=== PATIENT | male | born 1960 | race Caucasian/White ===

== ENCOUNTER 2018-08-30 16:42 | Inpatient (IN) ==
[2018-08-30] MEDS ORDERED: Sod Chloride 0.9% Inj 1,000 ML IV.SIG SCH (17:15)
--- NOTE | 2018-08-30 17:17 | ED ---
HPI General Chief complaint: Psychiatric Symptoms Stated complaint: psych eval/flagler Time Seen by Provider: 08/30/18 16:58 Source: patient Mode of arrival: ambulatory Limitations: no limitations History of Present Illness HPI narrative: 58yo M was brought in as Ex Parte because pt has been refusing to eat, drink, move or go to doctor's appointment for 2 months. Pt is cachetic and seemed hopeless. Said when he eats, "his body gets all messed up" so he does not want to eat. Said his abdomen hurts after eating and it has been like that since his gallbladder was removed 1.5 months ago. Denies any fever, chest pain, sob, n/v, focal weakness or numbness. Related Data Home Medications Medication Instructions Recorded Confirmed No Known Home Medications 08/30/18 08/30/18 Allergies Allergy/AdvReac Type Severity Reaction Status Date / Time No Known Allergies Allergy Uncoded 12/06/14 12:02 Review of Systems ROS: all other systems reviewed are negative [facility] Surgical History Surgical History History of cholecystectomy (Acute) Social History Social History Substance History: No History of Abuse Smoking Status: Never smoker How Often Do You Have a Drink Containing Alcohol: Monthly or less Recent Travel in [facility] within the Last 8 Weeks: No Recent Out of Country Travel within the Last 8 Weeks: No Immunization History Tetanus Immunization: Unsure Exam Narrative Exam Narrative: GENERAL: 58yo M in mild distress. SKIN: Focused skin assessment warm/dry. HEAD: Atraumatic. Normocephalic. EYES: Pupils equal and round. No scleral icterus. No injection or drainage. ENT: No nasal bleeding or discharge. Mucous membranes pink and moist. NECK: Trachea midline. No JVD. CARDIOVASCULAR: Mild tachycardia at 100bpm. No murmur appreciated. RESPIRATORY: No accessory muscle use. Clear to auscultation. Breath sounds equal bilaterally. GASTROINTESTINAL: Abdomen soft, nondistended. TTP with slight palpation diffusely. MUSCULOSKELETAL: No obvious deformities. No clubbing. No cyanosis. No edema. NEUROLOGICAL: Awake and alert. No obvious cranial nerve deficits. Motor grossly within normal limits. Normal speech. PSYCHIATRIC: Appropriate mood and affect; insight and judgment normal. Course Initial Documented Vital Signs Temperature 98.6 F 08/30/18 16:58 Pulse Rate 100 H 08/30/18 16:58 Respiratory Rate 20 11/29/18 16:58 Blood Pressure 132/96 H 08/30/18 16:58 Pulse Oximetry 100 08/30/18 16:58 Last Documented Vital Signs Temperature 98.2 F 08/30/18 22:00 Pulse Rate 88 08/31/18 05:46 Respiratory Rate 16 08/31/18 05:46 Blood Pressure 142/98 H 08/31/18 05:46 Pulse Oximetry 100 08/31/18 05:46 Medical Decision Making MDM Narrative Medical decision making narrative: 58yo M who is cachetic appearing here under Ex Parte because family said he has refused to eat or take medication for months. Pt does appear hopeless. No focal neurologic deficits. Will obtain labs to check electrolytes. Pt is very tender in the abdomen although it sounds chronic, will do CT a/p since he has not been here for this. Need to rule out malignancy. Labs reviewed, no leukocytosis. H/H low at 12.4/36.5, improved from last month. Mild hypokalemia at 3.1, ordered KCl PO. TSH normal. Alcohol negative. CT a/p showed prominent prostate with high density material in expected region of prostatic urethra raising possibility of blood clot. Clinically, pt said he had urination this morning and there is no blood in his urine. He has not urinated for us yet, waiting for UA and urine drug screen. Mild diffuse urinary bladder wall thickening. 6mm low density lesion within right lobe of liver which is too small for accurate density measurement. MRI of abdomen with liver protocol would be helpful. Informed pt and he can follow up as outpatient for this. Mild degenerative changes and scoliosis of the thoracolumbar spine. Pt is pending urine but otherwise medically clear for psych evaluation. Medical Screen Exam Complete: Yes Emergency Medical Condition: Yes Differential Diagnosis Differential Diagnosis: Depression vs. electrolyte abnormality vs. dehydration vs. chronic abdominal pain vs. malignancy Lab Data Result diagrams: 08/30/18 17:08 08/30/18 17:08 Lab Results 08/30/18 08/30/18 08/30/18 Range/Units 17:08 17:08 21:40 WBC 4.7 (4.0-11.0) th/mm3 RBC 4.33 L (4.50-5.90) mil/mm3 Hgb 12.4 L (13.0-17.0) gm/dL Hct 36.5 L (39.0-51.0) % MCV 84.5 (80.0-100.0) fL MCH 28.7 (27.0-34.0) pg MCHC 33.9 (32.0-36.0) % RDW 14.8 (11.6-17.2) % Plt Count 295 (150-450) th/mm3 MPV 9.4 (7.0-11.0) fL Neut % (Auto) 70.6 H (16.0-70.0) % Lymph % (Auto) 20.8 (9.0-44.0) % [place] % (Auto) 7.1 (0.0-8.0) % Eos % (Auto) 0.2 (0.0-4.0) % Baso % (Auto) 1.3 (0.0-2.0) % Neut # (Auto) 3.3 (1.8-7.7) th/mm3 Lymph # (Auto) 1.0 (1.0-4.8) th/mm3 [place] # (Auto) 0.3 (0.0-0.9) th/mm3 Eos # (Auto) 0.0 (0.0-0.4) th/mm3 Baso # (Auto) 0.1 (0.0-0.2) th/mm3 WBC Differential . Differential Comment Auto diff final Sodium 138 (136-145) meq/L Potassium 3.1 L (3.5-5.1) meq/L Chloride 98 (98-107) meq/L Carbon Dioxide 28.5 (21.0-32.0) meq/L Anion Gap 12 (5-15) meq/L BUN 17 (7-18) mg/dL Creatinine 0.91 (0.60-1.30) mg/dL Estimated GFR 86 L (>89) mL/min Random Glucose 99 (74-106) mg/dL Calcium 8.8 (8.5-10.1) mg/dL Magnesium 1.9 (1.5-2.5) mg/dL Total Bilirubin 0.9 (0.2-1.0) mg/dL AST 15 (15-37) U/L ALT 11 L (12-78) U/L Alkaline Phosphatase 50 (45-117) U/L Total Protein 6.7 (6.4-8.2) g/dL Albumin 3.4 (3.4-5.0) g/dL TSH 2.960 (0.358-3.740) uIU/mL Urine Color (Yellw/Straw) Urine Clarity (Clear) Urine pH (5.0-8.5) Ur Specific [place] (1.002-1.035) Urine Protein (Neg-Trace) mg/dL Urine Glucose (UA) (Negative) mg/dL Urine Ketones (Negative) mg/dL Urine Occult Blood (Negative) Urine Nitrate (Negative) Urine Bilirubin (Negative) Urine Urobilinogen (Less than 2) mg/dL Ur Leukocyte Esterase (Negative) Urine RBC (0-3) /hpf Urine WBC (0-5) /hpf Ur Squamous Epith Cells (0-5) /hpf Urine Mucus (Occasional) /lpf Micro UA Comment Ur Microscopic Review Urine Culture Comments Urine Opiates Screen Neg (Neg) Ur Barbiturates Screen Neg (Neg) Ur Amphetamines Screen Neg (Neg) U Benzodiazepines Scrn Neg (Neg) Urine Cocaine Screen Neg (Neg) U Cannabinoids Screen Neg (Neg) Serum Alcohol Less than 3 (0-5) mg/dL 08/30/18 Range/Units 21:40 WBC (4.0-11.0) th/mm3 RBC (4.50-5.90) mil/mm3 Hgb (13.0-17.0) gm/dL Hct (39.0-51.0) % MCV (80.0-100.0) fL MCH (27.0-34.0) pg MCHC (32.0-36.0) % RDW (11.6-17.2) % Plt Count (150-450) th/mm3 MPV (7.0-11.0) fL Neut % (Auto) (16.0-70.0) % Lymph % (Auto) (9.0-44.0) % [place] % (Auto) (0.0-8.0) % Eos % (Auto) (0.0-4.0) % Baso % (Auto) (0.0-2.0) % Neut # (Auto) (1.8-7.7) th/mm3 Lymph # (Auto) (1.0-4.8) th/mm3 [place] # (Auto) (0.0-0.9) th/mm3 Eos # (Auto) (0.0-0.4) th/mm3 Baso # (Auto) (0.0-0.2) th/mm3 WBC Differential Differential Comment Sodium (136-145) meq/L Potassium (3.5-5.1) meq/L Chloride (98-107) meq/L Carbon Dioxide (21.0-32.0) meq/L Anion Gap (5-15) meq/L BUN (7-18) mg/dL Creatinine (0.60-1.30) mg/dL Estimated GFR (>89) mL/min Random Glucose (74-106) mg/dL Calcium (8.5-10.1) mg/dL Magnesium (1.5-2.5) mg/dL Total Bilirubin (0.2-1.0) mg/dL AST (15-37) U/L ALT (12-78) U/L Alkaline Phosphatase (45-117) U/L Total Protein (6.4-8.2) g/dL Albumin (3.4-5.0) g/dL TSH (0.358-3.740) uIU/mL Urine Color Yellow (Yellw/Straw) Urine Clarity Clear (Clear) Urine pH 7.0 (5.0-8.5) Ur Specific [place] 1.042 H (1.002-1.035) Urine Protein 30 H (Neg-Trace) mg/dL Urine Glucose (UA) Negative (Negative) mg/dL Urine Ketones 20 (Negative) mg/dL Urine Occult Blood Negative (Negative) Urine Nitrate Negative (Negative) Urine Bilirubin Negative (Negative) Urine Urobilinogen 4 or greater (Less than 2) mg/dL Ur Leukocyte Esterase Negative (Negative) Urine RBC 1 (0-3) /hpf Urine WBC 2 (0-5) /hpf Ur Squamous Epith Cells <1 (0-5) /hpf Urine Mucus Few H (Occasional) /lpf Micro UA Comment Culture not ind Ur Microscopic Review Not Reportable Urine Culture Comments Culture not ind Urine Opiates Screen (Neg) Ur Barbiturates Screen (Neg) Ur Amphetamines Screen (Neg) U Benzodiazepines Scrn (Neg) Urine Cocaine Screen (Neg) U Cannabinoids Screen (Neg) Serum Alcohol (0-5) mg/dL Imaging Data Radiologist's impression: Abdomen/Pelvis CT 08/30/18 17:05 CONCLUSION: 1. Small pericardial effusion. 2. Prominent prostate with high density material in the expected region of the prostatic urethra raising the possibility of blood clot. Clinical correlation is recommended. 3. Mild diffuse urinary bladder wall thickening. 4. 3.7 cm right lower pole renal cyst. 5. 6 mm low-density lesion within the right lobe of the liver which is too small for accurate density measurement. MRI of the abdomen with contrast using liver protocol would be helpful for further characterization of this finding if clinically indicated. 6. Mild degenerative changes and scoliosis of the thoracolumbar spine. Discharge Plan Discharge Disposition Patient Disposition: 30 Still Patient Discharge Details Diagnosis: Depression Physicians Team ED Provider: Genesis Burks Primary Care Provider: Primary Care Physici,Damaris Rxs /Orders / Referrals /Forms Prescriptions: No Action No Known Home Medications RF: 0 Status ED Status: Medically Cleared
[2018-08-30 17:23] LABS: Baso # (Auto) 0.1 th/mm3 (0.0-0.2); Baso % (Auto) 1.3 % (0.0-2.0); Eos % (Auto) 0.2 % (0.0-4.0); Hematocrit 36.5 % (39.0-51.0); Hemoglobin 12.4 gm/dL (13.0-17.0); Lymph % (Auto) 20.8 % (9.0-44.0); Mean Corpuscular HGB Conc 33.9 % (32.0-36.0); Mean Corpuscular Hemoglobin 28.7 pg (27.0-34.0); Mean Corpuscular Volume 84.5 fL (80.0-100.0); Mean Platelet Volume 9.4 fL (7.0-11.0); Mono # (Auto) 0.3 th/mm3 (0.0-0.9); Mono % (Auto) 7.1 % (0.0-8.0); Neut # (Auto) 3.3 th/mm3 (1.8-7.7); Neut % (Auto) 70.6 % (16.0-70.0); Platelet Count 295 th/mm3 (150-450); Red Blood Count 4.33 mil/mm3 (4.50-5.90); Red Cell Distribution Width 14.8 % (11.6-17.2); White Blood Count 4.7 th/mm3 (4.0-11.0)
--- NOTE | 2018-08-30 17:43 | CT ---
EXAM DATE: 08/30/2018 5:33 PM EST AGE/SEX: 58 years / Male INDICATIONS: Abdominal pain. CLINICAL DATA: This is the patient's initial encounter. Patient reports that signs and symptoms have been present for 1 day and indicates a pain score of 6/10. MEDICAL/SURGICAL HISTORY: None. Cholecystectomy. ORAL CONTRAST: No oral contrast ingested. RADIATION DOSE: 6.64 CTDI (mGy) COMPARISON: No prior exams available for comparison. TECHNIQUE: Multiple contiguous axial images were obtained through the abdomen and pelvis following b olus infusion of 90 ml Omnipaque 350 (iohexol) nonionic water-soluble contrast as a single exam dos e. No oral contrast ingested. Using automated exposure control and adjustment of the mA and/or kV ac cording to patient size, radiation dose was kept as low as reasonably achievable to obtain optimal di agnostic quality images. DICOM format image data is available electronically for review and comparis on. FINDINGS: Lower Lungs: Small pericardial effusion is noted. Liver: There is a 6 mm low-density lesion within the right lobe of the liver which is too small for a ccurate density measurement. MRI of the abdomen with contrast using liver protocol would be helpful f or further characterization of this finding if clinically indicated. There is no dilation of the bili dipti tree. The gallbladder has been resected. Spleen: Homogeneous density without enlargement. Pancreas: Unremarkable without mass or calcification. Kidneys: Normal in size and shape. No evidence of solid mass or hydronephrosis. There is a 3.7 cm ri ght lower pole renal cyst. Adrenal Glands: Unremarkable. Aorta: The aorta and proximal iliac vessels are grossly unremarkable without aneurysmal dilation. Bowel/Mesentery: The bowel loops are grossly unremarkable. The cecum and sigmoid colon have a normal configuration. Abdominal Wall: Intact. Retroperitoneum: No evidence of adenopathy in the retrocrural, para-aortic, or deep pelvic regions. Bladder: The urinary bladder wall is diffusely thickened. There is high density material in the expe cted region of the prostatic urethra raising the possibility of blood clot. Clinical correlation is r ecommended. Reproductive Organs: The prostate gland is mildly prominent. Inguinal: The inguinal region is unremarkable without evidence of adenopathy. Bony Structures: Mild degenerative changes and scoliosis of the thoracolumbar spine are noted. CONCLUSION: 1. Small pericardial effusion. 2. Prominent prostate with high density material in the expected region of the prostatic urethra butcher sing the possibility of blood clot. Clinical correlation is recommended. 3. Mild diffuse urinary bladder wall thickening. 4. 3.7 cm right lower pole renal cyst. 5. 6 mm low-density lesion within the right lobe of the liver which is too small for accurate densit y measurement. MRI of the abdomen with contrast using liver protocol would be helpful for further linda racterization of this finding if clinically indicated. 6. Mild degenerative changes and scoliosis of the thoracolumbar spine. Electronically signed by: Cuauhtemoc Healy MD 08/30/2018 5:41 PM EST
[2018-08-30 17:47] LABS: Alanine Aminotransferase 11 U/L (12-78); Albumin 3.4 g/dL (3.4-5.0); Anion Gap 12 meq/L (5-15); Aspartate Aminotransferase 15 U/L (15-37); Blood Urea Nitrogen 17 mg/dL (7-18); Calcium 8.8 mg/dL (8.5-10.1); Carbon Dioxide 28.5 meq/L (21.0-32.0); Chloride 98 meq/L (98-107); Glomerular Filtration Rate 86 mL/min (>89); Glucose,Random 99 mg/dL (74-106); Magnesium 1.9 mg/dL (1.5-2.5); Potassium 3.1 meq/L (3.5-5.1); Sodium 138 meq/L (136-145)
[2018-08-30 17:57] LABS: Alkaline Phosphatase 50 U/L (45-117); Total Protein 6.7 g/dL (6.4-8.2)
[2018-08-30 22:14] LABS: Amphetamine Screen,Urine Neg (Neg); Barbiturate Screen,Urine Neg (Neg); Cannabinoid Screen,Urine Neg (Neg); Cocaine Screen,Urine Neg (Neg)
[2018-08-30 22:20] LABS: Opiate Screen,Urine Neg (Neg)
[2018-08-30 22:26] LABS: Bilirubin,Urine Negative (Negative); Clarity,Urine Clear (Clear); Color,Urine Yellow (Yellw/Straw); Glucose,Urine (UA) Negative (Negative); Leukocyte Esterase,Urine Negative (Negative); Mucus,Urine Few /lpf (Occasional); Nitrite,Urine Negative (Negative); Specific Gravity,Urine 1.042 (1.002-1.035); Squamous Epithelial Cell,Urine <1 /hpf (0-5); Urobilinogen,Urine 4 or Greater mg/dL (Less than 2)
--- NOTE | 2018-08-31 10:28 | ED ---
HPI - Psych - General Source: patient, RN notes reviewed, old records reviewed Mode of arrival: ambulatory Limitations: physical limitation - History of Present Illness MD complaint: other Onset (ago): week(s) Duration: constant History of same: No Relieving factors: none Exacerbating factors: other (Recent surgery) Context: significant life stressor Associated psychiatric symptoms: depression Associated symptoms: nausea, other (Dizziness) Treatments prior to arrival: other (under Ex Parte) - General Chief Complaint: Psychiatric Symptoms Stated Complaint: psych eval/flagler Time Seen by Provider: 08/30/18 16:58 - History of Present Illness HPI Narrative: History of Present Illness HPI narrative: The patient is 58 year old, male, living with his parents, 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 The process was started by his daughter who allege that over the past 6 to 8 weeks the patient has been refusing to eat, drink anything but water, get out of bed, or follow-up with scheduled doctor's appointments. It is reported that the patient has lost approximately 100 pounds. The patient states that he is unable to eat because when he does eat my body gets all messed up so I do not want to eat. He attributes this began after he had his gallbladder bladder removed a month and a half ago. The patient is seen. Electronic medical record is reviewed. No previous contact with [facility] psychiatry. Labs reviewed, no leukocytosis. H/H low at 12.4/36.5. Mild hypokalemia at 3.1. TSH normal. Alcohol negative. CT a/p showed prominent prostate with high density material in expected region of prostatic urethra raising possibility of blood clot. Clinically, pt said he had urination this morning and there is no blood in his urine. Mild diffuse urinary bladder wall thickening. 6mm low density lesion within right lobe of liver which is too small for accurate density measurement. MRI of abdomen with liver protocol is recommended as an outpatients. Mild degenerative changes and scoliosis of the thoracolumbar spine. Patient is seen. He is alert, oriented, cachectic. Speech is clear and logical. Affect is blunted. Mood is depressed, hopeless regarding his physical condition. Patient states "I have given up on my body but I do not want to ."Denies suicidal ideation. Denies any hallucinations, delusions or paranoia. He states that he has been having increased difficulty eating and since his gallbladder surgery so he basically stopped eating. He is mostly drinking sips of water as per his reports. He states that he has been in bed and now is unable to walk on his own. (An Michaels) - Related Data Home Medications Medication Instructions Recorded Confirmed No Known Home Medications 08/30/18 08/30/18 Allergies Allergy/AdvReac Type Severity Reaction Status Date / Time No Known Allergies Allergy Uncoded 12/06/14 12:02 [facility] - History History Provided By: Patient - Surgical History Surgical History: Surgical History (Last Updated 08/30/18 @ 16:58 by Jerica Hernández) History of cholecystectomy - Social History I have reviewed the patient's Social History: Yes - Tobacco History Smoking Status: Never smoker - Alcohol History How Often Do You Have a Drink Containing Alcohol: Monthly or less - Substance Use History Substance History: No History of Abuse - Travel History Recent Travel in the [facility] Within the Last 8 Weeks: No Recent Travel Out of the Country Within the Last 8 Weeks: No - Immunization History Tetanus Immunization: Unsure Psychiatric History - Psychiatric History Psychiatric Treatment History: History of Psychiatric Treatment History of Inpatient Treatment: Yes Firearms in Home: Yes - Psychiatric History Reports 1 previous psychiatric admission at [facility] in 2017 after he was placed under a Kirk act for allegedly not sleeping as well as working excessively. He was prescribed Seroquel 300 mg p.o. daily which he states he took until approximately the beginning of this year. He is currently not taking any psychiatric medication and not under the care of any psychiatric provider. Denies any previous suicide attempt (An Michaels) - Legal History Patient is under probation after he was found carrying a weapon. History of DUI in 2008 (An Michaels) - Family Psychiatric History Father has received treatment for depression. His brother also receives treatment for depression (An Michaels) Physical Exam - General Limitations: no limitations Mental Status Examination Appearance: Other (Very thin male) Consciousness: Alert (.) Orientation: x4 Motor Activity: Other Speech: Unremarkable Language: Adequate (Remained in bed) Fund of Knowledge: Adequate Attention and Concentration: Adequate Memory: Unremarkable Mood: Sad, Other (Hopeless) Affect: Blunt Thought Process & Associations: Intact, Logical, Goal directed Initial Documented Vital Signs Temperature 98.6 F 08/30/18 16:58 Pulse Rate 100 H 08/30/18 16:58 Respiratory Rate 20 08/30/18 16:58 Blood Pressure 132/96 H 08/30/18 16:58 Pulse Oximetry 100 08/30/18 16:58 Last Documented Vital Signs Temperature 98.2 F 08/30/18 22:00 Pulse Rate 78 08/31/18 10:51 Respiratory Rate 20 08/31/18 10:51 Blood Pressure 163/90 H 08/31/18 10:51 Pulse Oximetry 100 08/31/18 08:45 MDM - Psych - Diagnosis (1) Bipolar disorder with depression Status: Acute - Lab Data Result diagrams: 08/30/18 17:08 08/30/18 17:08 - [facility] Narrative Medical decision making narrative: Case discussed with Dr. Delarosa for admission to [facility]. I will order a medical consult as well as OT and PT. Patient will be admitted for further observation, stabilization and medication management. (An Michaels) - Lab Data Lab Results 08/30/18 08/30/18 08/30/18 Range/Units 17:08 17:08 21:40 WBC 4.7 (4.0-11.0) th/mm3 RBC 4.33 L (4.50-5.90) mil/mm3 Hgb 12.4 L (13.0-17.0) gm/dL Hct 36.5 L (39.0-51.0) % MCV 84.5 (80.0-100.0) fL MCH 28.7 (27.0-34.0) pg MCHC 33.9 (32.0-36.0) % RDW 14.8 (11.6-17.2) % Plt Count 295 (150-450) th/mm3 MPV 9.4 (7.0-11.0) fL Neut % (Auto) 70.6 H (16.0-70.0) % Lymph % (Auto) 20.8 (9.0-44.0) % [place] % (Auto) 7.1 (0.0-8.0) % Eos % (Auto) 0.2 (0.0-4.0) % Baso % (Auto) 1.3 (0.0-2.0) % Neut # (Auto) 3.3 (1.8-7.7) th/mm3 Lymph # (Auto) 1.0 (1.0-4.8) th/mm3 [place] # (Auto) 0.3 (0.0-0.9) th/mm3 Eos # (Auto) 0.0 (0.0-0.4) th/mm3 Baso # (Auto) 0.1 (0.0-0.2) th/mm3 WBC Differential . Differential Comment Auto diff final Sodium 138 (136-145) meq/L Potassium 3.1 L (3.5-5.1) meq/L Chloride 98 (98-107) meq/L Carbon Dioxide 28.5 (21.0-32.0) meq/L Anion Gap 12 (5-15) meq/L BUN 17 (7-18) mg/dL Creatinine 0.91 (0.60-1.30) mg/dL Estimated GFR 86 L (>89) mL/min Random Glucose 99 (74-106) mg/dL Calcium 8.8 (8.5-10.1) mg/dL Magnesium 1.9 (1.5-2.5) mg/dL Total Bilirubin 0.9 (0.2-1.0) mg/dL AST 15 (15-37) U/L ALT 11 L (12-78) U/L Alkaline Phosphatase 50 (45-117) U/L Total Protein 6.7 (6.4-8.2) g/dL Albumin 3.4 (3.4-5.0) g/dL TSH 2.960 (0.358-3.740) uIU/mL Urine Color (Yellw/Straw) Urine Clarity (Clear) Urine pH (5.0-8.5) Ur Specific [place] (1.002-1.035) Urine Protein (Neg-Trace) mg/dL Urine Glucose (UA) (Negative) mg/dL Urine Ketones (Negative) mg/dL Urine Occult Blood (Negative) Urine Nitrate (Negative) Urine Bilirubin (Negative) Urine Urobilinogen (Less than 2) mg/dL Ur Leukocyte Esterase (Negative) Urine RBC (0-3) /hpf Urine WBC (0-5) /hpf Ur Squamous Epith Cells (0-5) /hpf Urine Mucus (Occasional) /lpf Micro UA Comment Ur Microscopic Review Urine Culture Comments Urine Opiates Screen Neg (Neg) Ur Barbiturates Screen Neg (Neg) Ur Amphetamines Screen Neg (Neg) U Benzodiazepines Scrn Neg (Neg) Urine Cocaine Screen Neg (Neg) U Cannabinoids Screen Neg (Neg) Serum Alcohol Less than 3 (0-5) mg/dL 08/30/18 Range/Units 21:40 WBC (4.0-11.0) th/mm3 RBC (4.50-5.90) mil/mm3 Hgb (13.0-17.0) gm/dL Hct (39.0-51.0) % MCV (80.0-100.0) fL MCH (27.0-34.0) pg MCHC (32.0-36.0) % RDW (11.6-17.2) % Plt Count (150-450) th/mm3 MPV (7.0-11.0) fL Neut % (Auto) (16.0-70.0) % Lymph % (Auto) (9.0-44.0) % [place] % (Auto) (0.0-8.0) % Eos % (Auto) (0.0-4.0) % Baso % (Auto) (0.0-2.0) % Neut # (Auto) (1.8-7.7) th/mm3 Lymph # (Auto) (1.0-4.8) th/mm3 [place] # (Auto) (0.0-0.9) th/mm3 Eos # (Auto) (0.0-0.4) th/mm3 Baso # (Auto) (0.0-0.2) th/mm3 WBC Differential Differential Comment Sodium (136-145) meq/L Potassium (3.5-5.1) meq/L Chloride (98-107) meq/L Carbon Dioxide (21.0-32.0) meq/L Anion Gap (5-15) meq/L BUN (7-18) mg/dL Creatinine (0.60-1.30) mg/dL Estimated GFR (>89) mL/min Random Glucose (74-106) mg/dL Calcium (8.5-10.1) mg/dL Magnesium (1.5-2.5) mg/dL Total Bilirubin (0.2-1.0) mg/dL AST (15-37) U/L ALT (12-78) U/L Alkaline Phosphatase (45-117) U/L Total Protein (6.4-8.2) g/dL Albumin (3.4-5.0) g/dL TSH (0.358-3.740) uIU/mL Urine Color Yellow (Yellw/Straw) Urine Clarity Clear (Clear) Urine pH 7.0 (5.0-8.5) Ur Specific [place] 1.042 H (1.002-1.035) Urine Protein 30 H (Neg-Trace) mg/dL Urine Glucose (UA) Negative (Negative) mg/dL Urine Ketones 20 (Negative) mg/dL Urine Occult Blood Negative (Negative) Urine Nitrate Negative (Negative) Urine Bilirubin Negative (Negative) Urine Urobilinogen 4 or greater (Less than 2) mg/dL Ur Leukocyte Esterase Negative (Negative) Urine RBC 1 (0-3) /hpf Urine WBC 2 (0-5) /hpf Ur Squamous Epith Cells <1 (0-5) /hpf Urine Mucus Few H (Occasional) /lpf Micro UA Comment Culture not ind Ur Microscopic Review Not Reportable Urine Culture Comments Culture not ind Urine Opiates Screen (Neg) Ur Barbiturates Screen (Neg) Ur Amphetamines Screen (Neg) U Benzodiazepines Scrn (Neg) Urine Cocaine Screen (Neg) U Cannabinoids Screen (Neg) Serum Alcohol (0-5) mg/dL
[2018-08-31] MEDS ORDERED: Aluminum/Magnesium/Simethacone Susp 30 ML UDC PO PRN (10:51)
[2018-08-31 17:19] LABS: Anion Gap 7 meq/L (5-15); Blood Urea Nitrogen 15 mg/dL (7-18); Calcium 8.4 mg/dL (8.5-10.1); Carbon Dioxide 31.4 meq/L (21.0-32.0); Chloride 102 meq/L (98-107); Glomerular Filtration Rate Greater Than 89 mL/min (>89); Glucose,Random 94 mg/dL (74-106); Potassium 3.3 meq/L (3.5-5.1); Sodium 140 meq/L (136-145)
[2018-08-31] MEDS ORDERED: Lisinopril 5 MG Tablet PO ONE (17:37)
--- NOTE | 2018-08-31 17:40 | P.CON ---
History of Present Illness Service: [facility] Consult date: 08/31/18 Requesting Physician: An Michaels Reason for Consult: Medical management Primary Care Provider: No Primary Care Physician Chief Complaint: "Nothing is going through" History of Present Illness: 58-year-old male with past medical history significant for hypertension who presents to the emergency under ex-parte due to severe depression. Review of records, daughter was severely concerned with patient as he had become severely depressed not eating or drinking. Patient had also secluded to his room for the past 2 months with failure to thrive. Patient reports that he had a cholecystectomy about 7 weeks ago and since then has not been able to eat a regular diet. He has been eating cereal as well as drinking fluids. He states that his bowels have not been normal. He states that "things are not going through" . He complains of diffuse abdominal pain which has been ongoing since his cholecystectomy. He denies any nausea, vomiting. One episode of diarrhea and occasional constipation. He denies any fevers, chills, cough, shortness of breath, chest pain, palpitations, headache or dizziness. He reportedly has lost a total of 100lb in the past 2 months per exparte documents. Patient also reports a history of HTN for which he was on lisinopril for, he has not been compliant with this. He denies any dysuria, hematuria hesitancy. Review of Systems All other systems reviewed negative except as stated in HPI PMFSH - History History Provided By: Patient - Medical History Medical History: Medical History (Last Updated 08/31/18 @ 18:12 by Robson Saravia) Hypertension - Surgical History Surgical History: Surgical History (Last Reviewed 08/31/18 @ 18:12 by Robson Saravia) History of cholecystectomy - Social History I have reviewed the patient's Social History: Yes - Tobacco History Second Hand Smoke Exposure: No Tobacco Use In Past 30 Days: No Smoking Status: Never smoker - Alcohol History How Often Do You Have a Drink Containing Alcohol: Monthly or less - Substance Use History Substance History: No History of Abuse - Travel History Recent Travel in the [place] Within the Last 8 Weeks: No Recent Travel Out of the Country Within the Last 8 Weeks: No - Immunization History Tetanus Immunization: <5 Years Hx Influenza Vaccine This Season: No Medications and Allergies Active Medications: Active Medications Al Hydrox/Mg Hydrox/Simethicone (Mag-Al Plus Susp Liq) 30 ml PO Q6H PRN PRN Reason: DYSPEPSIA Sodium Chloride (Ns Inj) 1,000 mls @ 100 mls/hr IV.CONT .Q10H RICKY Lactulose (Lactulose Liq) 30 ml PO DAILY PRN PRN Reason: SEVERE CONSITIPATION Lisinopril (Prinivil) 5 mg PO DAILY RICKY Lisinopril (Prinivil) 2.5 mg PO ONCE ONE Stop: 08/31/18 17:38 Potassium Chloride (Klor-Con 10) 30 meq PO ONCE ONE Stop: 08/31/18 17:37 Allergies Allergy/AdvReac Type Severity Reaction Status Date / Time No Known Allergies Allergy Uncoded 12/06/14 12:02 Home Medications Medication Instructions Recorded Confirmed Type No Known Home Medications 08/30/18 08/30/18 History Physical Exam Vital signs: Vital Signs 08/30/18 18:00 08/30/18 22:00 08/31/18 02:00 Temperature 98.2 F Pulse Rate 83 88 82 Respiratory Rate 16 20 20 Blood Pressure 154/101 H 136/86 128/72 Pulse Oximetry 99 98 98 08/31/18 05:46 08/31/18 08:45 08/31/18 10:51 Temperature Pulse Rate 88 104 H 78 Respiratory Rate 16 18 20 Blood Pressure 142/98 H 158/95 H 163/90 H Pulse Oximetry 100 100 Intake & Output 08/30/18 08/31/18 08/31/18 18:59 06:59 18:59 Intake Total 1000 / 1000 Balance 1000 / 1000 Weight 52.617 kg Intake: IV 1000 / 1000 NS Inj 1,000 ML @ 1000 mls/hr 1000 / 1000 IV.SIG BOLUS RICKY Rx#:[id number] Narrative: GENERAL: Thin emaciated male resign in bed in no acute distress. SKIN: Warm and dry. HEAD: Atraumatic. Normocephalic. EYES: Pupils equal and round. No scleral icterus. No injection or drainage. ENT: No nasal bleeding or discharge. Mucous membranes pink and moist. NECK: Trachea midline. No JVD. CARDIOVASCULAR: Regular rate and rhythm with no rubs. RESPIRATORY: No accessory muscle use. Clear to auscultation. Breath sounds equal bilaterally. GASTROINTESTINAL: Abdomen soft, nontender, nondistended. Hypoactive bowel sounds. MUSCULOSKELETAL: Extremities without clubbing, cyanosis, or edema. No obvious deformities. NEUROLOGICAL: Awake, alert, oriented x3. No obvious cranial nerve deficits. Motor grossly within normal limits. 4/5 muscle strength in the arms and legs. Normal speech. PSYCHIATRIC: Flat affect. Results - Labs CBC & Chem 7: 08/30/18 17:08 08/31/18 16:30 Labs: Laboratory Results - last 24 hr 08/30/18 08/30/18 08/30/18 17:08 21:40 21:40 Sodium 138 Potassium 3.1 L Chloride 98 Carbon Dioxide 28.5 Anion Gap 12 BUN 17 Creatinine 0.91 Estimated GFR 86 L Random Glucose 99 Calcium 8.8 Magnesium 1.9 Total Bilirubin 0.9 AST 15 ALT 11 L Alkaline Phosphatase 50 Total Protein 6.7 Albumin 3.4 TSH 2.960 Urine Color Yellow Urine Clarity Clear Urine pH 7.0 Ur Specific [place] 1.042 H Urine Protein 30 H Urine Glucose (UA) Negative Urine Ketones 20 Urine Occult Blood Negative Urine Nitrate Negative Urine Bilirubin Negative Urine Urobilinogen 4 or greater Ur Leukocyte Esterase Negative Urine RBC 1 Urine WBC 2 Ur Squamous Epith Cells <1 Urine Mucus Few H Micro UA Comment Culture not ind Ur Microscopic Review Not Reportable Urine Culture Comments Culture not ind Urine Opiates Screen Neg Ur Barbiturates Screen Neg Ur Amphetamines Screen Neg U Benzodiazepines Scrn Neg Urine Cocaine Screen Neg U Cannabinoids Screen Neg Serum Alcohol Less than 3 08/31/18 16:30 Sodium 140 Potassium 3.3 L Chloride 102 Carbon Dioxide 31.4 Anion Gap 7 BUN 15 Creatinine 0.69 Estimated GFR Greater than 89 Random Glucose 94 Calcium 8.4 L Magnesium Total Bilirubin AST ALT Alkaline Phosphatase Total Protein Albumin TSH Urine Color Urine Clarity Urine pH Ur Specific [place] Urine Protein Urine Glucose (UA) Urine Ketones Urine Occult Blood Urine Nitrate Urine Bilirubin Urine Urobilinogen Ur Leukocyte Esterase Urine RBC Urine WBC Ur Squamous Epith Cells Urine Mucus Micro UA Comment Ur Microscopic Review Urine Culture Comments Urine Opiates Screen Ur Barbiturates Screen Ur Amphetamines Screen U Benzodiazepines Scrn Urine Cocaine Screen U Cannabinoids Screen Serum Alcohol - Imaging Impressions Abdomen/Pelvis CT 08/30/18 17:05 CONCLUSION: 1. Small pericardial effusion. 2. Prominent prostate with high density material in the expected region of the prostatic urethra raising the possibility of blood clot. Clinical correlation is recommended. 3. Mild diffuse urinary bladder wall thickening. 4. 3.7 cm right lower pole renal cyst. 5. 6 mm low-density lesion within the right lobe of the liver which is too small for accurate density measurement. MRI of the abdomen with contrast using liver protocol would be helpful for further characterization of this finding if clinically indicated. 6. Mild degenerative changes and scoliosis of the thoracolumbar spine. Assessment and Plan - Plan 58-year-old male with past medical history significant for hypertension who presents to the emergency under ex-parte due to severe depression and failure to thrive. [facility] consulted to assist with medical management. Abdominal pain -s/p lap cholecystectomy 7 weeks. -AST/ALT stable - Abd/pelv CT with small pericardial effusion. Prominent prostate with high density material in the expected region of the prostatic urethra raising the possibility of blood clot. Clinical correlation is recommended. Mild diffuse urinary bladder wall thickening. Right lower pole renal cyst. 6 mm low-density lesion within the right lobe of the liver which is too small for accurate density measurement. MRI of the abdomen with contrast using liver protocol would be helpful for further characterization of this finding if clinically indicated. Mild degenerative changes and scoliosis of the thoracolumbar spine. - ? somatic - Will further evaluate liver mass with MRI given significant weight loss Hypokalemia, acute - Repeat BMP with low K, replace orally and recheck BMP & mag in the a.m. Cachexia BMI<19, decreased crystal attacher strength Weight loss Reported 100lb in the past 2 months - Possibly related to depression and failure to thrive - Lesion noted on abd/pelvis CT scan, follow up with recommended MRI - Consult dietary for recommendations, start regular diet with Ensure - Trial of megace - Bowel program for constipation - IVF for hydration DVT prophylaxis-subq heparin
[2018-08-31] MEDS ORDERED: Sodium Chloride 0.9% 2 ML Flush PRN IV.FLUSH (17:57)
[2018-08-31] MEDS: Sodium Chloride 0.9% 2 ML Flush BID IV.FLUSH SCH (22:45)
[2018-08-31] MEDS: Sod Chloride 0.9% Inj 1,000 ML IV.CONT SCH (22:50)
[2018-09-01] MEDS: Lisinopril 5 MG Tablet PO SCH (08:29)
[2018-09-01] MEDS: Megestrol Acetate Liq 400 MG/10 ML UDC PO SCH (08:29)
[2018-09-01] MEDS: Heparin - SQ 10,000 UNITS/ML Vial SQ SCH ×2 (08:29→20:19)
[2018-09-01] MEDS: Sod Chloride 0.9% Inj 1,000 ML IV.CONT SCH ×2 (08:32→17:53)
[2018-09-01] MEDS: Senna/Docusate Sodium 8.6/50 MG Tablet PO SCH (08:37)
[2018-09-01] MEDS: Sodium Chloride 0.9% 2 ML Flush BID IV.FLUSH SCH ×2 (08:37→20:21)
[2018-09-01 08:46] LABS: Anion Gap 9 meq/L (5-15); Blood Urea Nitrogen 15 mg/dL (7-18); Calcium 8.4 mg/dL (8.5-10.1); Carbon Dioxide 27.5 meq/L (21.0-32.0); Chloride 106 meq/L (98-107); Cholesterol 225 mg/dL (120-200); Glomerular Filtration Rate Greater Than 89 mL/min (>89); Glucose,Random 77 mg/dL (74-106); Magnesium 1.8 mg/dL (1.5-2.5); Potassium 3.6 meq/L (3.5-5.1); Sodium 142 meq/L (136-145)
[2018-09-01 08:48] LABS: HDL Cholesterol 38.1 mg/dL (40.0-60.0); LDL Cholesterol,Calculated 164 mg/dL (0-99); Triglycerides 114 mg/dL (42-150)
--- NOTE | 2018-09-01 13:58 | P.HPPSY ---
Provisional Diagnosis Admission Date: August 31, 2018 10:51 Competence Certification of Person's Competence To Provide Express and Informed Consent I have personally examined Joseph Pfeiffer, a person being served at [facility] on, September 01, 2018 1352. Express and informed consent means consent voluntarily given in writing, by a competent person, after sufficient explanation and disclosure of the subject matter involved to enable the person to make a knowing and willful decision without any element of force, fraud, deceit, duress, or other form of constraint or coercion. This person is 18 years of age or older, is not now known to be incompetent to consent to treatment with a guardian advocate, and does not have a health care surrogate or proxy currently making medical treatment decisions. I have found this person to be one of the following: [X] Competent to provide express and informed consent, as defined above, for voluntary admission to this facility and is competent to provide express and informed consent for treatment. He/she has the consistent capacity to make well reasoned, willful, and knowing decisions concerning his or her medical or mental health treatment. The person fully and consistently understands the purpose of the admission for examination/placement and is fully capable of personally exercising all rights assured [place] Incompetent to provide express and informed consent to voluntary admission, and this is incompetent to provide express and informed consent to treatment. The person must be transferred to involuntary status and a petition for a guardian advocate filed with the Circuit Court. [] Refusing to provide express and informed consent to voluntary admission but is competent to provide express and informed consent for treatment. The person must be discharged or transferred to involuntary status. Form shall be completed within 24 hours of a person's arrival at the receiving facility and filed in the clinical record of each person: 1. Admitted on a voluntary basis 2. Permitted to provide express and informed consent to his/her own treatment 3. Allowed to transfer from involuntary to voluntary status 4. Prior to permitting a person to consent to his or her own treatment after having been previously found incompetent to consent to treatment. History of Present Illness Capacity: Has capacity Chief Complaint: depression History of Present Illness: Patient is a 58-year-old male with a history of bipolar disorder and no previous suicide attempts presenting to the hospital via exparte for depression and lack of self-care. Since undergoing cholecystectomy 6 weeks ago patient has had poor p.o. intake. Patient believes that he gets clogged up if he eats. He also admits to a history of weight loss during his depressive episodes. Patient recently lost 100 pounds per record. Mood has been depressed. Energy is low. Sleep is poor. Appetite is variable. Patient has passive suicidal ideation without any plan or intent. No psychosis noted. 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 The process was started by his daughter who allege that over the past 6 to 8 weeks the patient has been refusing to eat, drink anything but water, get out of bed, or follow-up with scheduled doctor's appointments. It is reported that the patient has lost approximately 100 pounds. The patient states that he is unable to eat because when he does eat my body gets all messed up so I do not want to eat. He attributes this began after he had his gallbladder bladder removed a month and a half ago. The patient is seen. Electronic medical record is reviewed. No previous contact with [facility] psychiatry." Past psych: no History of suicide attempts. No inpatient admissions. History of bipolar artemio lasting 6 months. Patient admits to a history of excess energy poor concentration excess goal directed activity and euphoric mood. The only psychotropic medication he has been on is Seroquel which she says gave him a bad reaction. Past medical: Cholecystectomy, hypertension Past Social: Patient is . He has 2 kids were grown up. Denies a history of alcohol or substance abuse; though, he has a DUI in 2008. 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 This includes certification that hospital inpatient services are reasonable and necessary and in the case of services not specified as inpatient-only under 42 CFR 419.22(n), that they are appropriately provided as inpatient services in accordance to with the 2-midnight benchmark under 43 CFR 412.3(e) I certify that inpatient psychiatric hospital services are medically necessary. Evaluation and treatment and/or diagnostic testing are expected to improve the patient's condition. The patient needs on a daily basis, active treatment furnished directly by or requiring the supervision of inpatient psychiatric facility personnel. Estimated Total Length of Stay (Days): 8 Plans for Post Hospital Care: Home [facility] - History History Provided By: Patient - Medical History Medical History: Medical History (Last Reviewed 09/01/18 @ 13:57 by Luis M Cardenas DO) Hypertension - Surgical History Surgical History: Surgical History (Last Reviewed 09/01/18 @ 13:57 by Luis M Cardenas DO) History of cholecystectomy - Tobacco History Second Hand Smoke Exposure: No Tobacco Use In Past 30 Days: No Smoking Status: Never smoker - Alcohol History How Often Do You Have a Drink Containing Alcohol: Monthly or less - Substance Use History Substance History: No History of Abuse - Travel History Recent Travel in the [place] Within the Last 8 Weeks: No Recent Travel Out of the Country Within the Last 8 Weeks: No - Immunization History Tetanus Immunization: <5 Years Hx Influenza Vaccine This Season: No Medications and Allergies Active Medications: Active Medications Al Hydrox/Mg Hydrox/Simethicone (Mag-Al Plus Susp Liq) 30 ml PO Q6H PRN PRN Reason: DYSPEPSIA Heparin Sodium (Porcine) (Heparin Inj) 5,000 units SQ Q12HR [facility] Last Admin: 09/01/18 08:29 Dose: 5,000 units Sodium Chloride (Ns Inj) 1,000 mls @ 100 mls/hr IV.CONT .Q10H [facility] Last Admin: 09/01/18 08:32 Dose: 100 mls/hr Lactulose (Lactulose Liq) 30 ml PO DAILY PRN PRN Reason: SEVERE CONSITIPATION Lisinopril (Prinivil) 5 mg PO DAILY [facility] Last Admin: 09/01/18 08:29 Dose: 5 mg Megestrol Acetate (Megace Liq) 400 mg PO DAILY [facility] Last Admin: 09/01/18 08:29 Dose: 400 mg Miscellaneous (Pill Splitter) 1 each OTHER UNSCH [facility] Senna/Docusate Sodium (Jazz-Colace) 1 tab PO DAILY [facility] Last Admin: 09/01/18 08:37 Dose: Not Given Sodium Chloride (Ns Flush) 2 ml IV.FLUSH BID [facility] Last Admin: 09/01/18 08:37 Dose: Not Given Sodium Chloride (Ns Flush) 2 ml IV.FLUSH PRN PRN PRN Reason: FLUSH AFTER USING IV ACCESS Allergies Allergy/AdvReac Type Severity Reaction Status Date / Time No Known Allergies Allergy Uncoded 12/06/14 12:02 Home Medications Medication Instructions Recorded Confirmed Type No Known Home Medications 08/30/18 08/30/18 History Results - Labs CBC & Chem 7: 08/30/18 17:08 09/01/18 07:16 Labs: Laboratory Results - last 24 hr 08/31/18 09/01/18 16:30 07:16 Sodium 140 142 Potassium 3.3 L 3.6 Chloride 102 106 Carbon Dioxide 31.4 27.5 Anion Gap 7 9 BUN 15 15 Creatinine 0.69 0.53 L Estimated GFR Greater than 89 Greater than 89 Random Glucose 94 77 Calcium 8.4 L 8.4 L Magnesium 1.8 Triglycerides 114 Cholesterol 225 H LDL Cholesterol, Calc 164 H HDL Cholesterol 38.1 L Cholesterol/HDL Ratio 5.90 Exam Vital signs: Vital Signs 08/31/18 20:00 09/01/18 05:44 Temperature 98.0 F 97.6 F Pulse Rate 88 78 Respiratory Rate 17 17 Blood Pressure 144/97 H 136/88 Pulse Oximetry 99 99 Intake & Output 08/31/18 09/01/18 09/01/18 18:59 06:59 18:59 Intake Total 120 / 120 1240 / 1240 Balance 120 / 120 1240 / 1240 Intake: IV 1000 / 1000 NS Inj 1,000 ML @ 100 mls/hr IV 1000 / 1000 .CONT .Q10H RICKY Rx#:[id number] Oral 120 / 120 240 / 240 Other: # Voids 1 Mental Status Examination Appearance: Disheveled, Other (Very thin male) Consciousness: Alert (.) Orientation: x4 Motor Activity: Other Speech: Unremarkable Language: Adequate (Remained in bed) Fund of Knowledge: Adequate Attention and Concentration: Adequate Memory: Unremarkable Mood: Sad, Other (Hopeless) Affect: Blunt Thought Process & Associations: Intact, Logical, Goal directed Thought Content: Appropriate Hallucination Type: None Suicidal Ideation: Yes (Fleeting) Assessment and Plan - Assessment (1) Bipolar disorder with depression Code(s): F31.30 - Bipolar disorder, current episode depressed, mild or moderate severity, unspecified Status: Acute - Plan Plan: Estimated LOS: [] days Patient will be admitted voluntarily. He gives consent to start mirtazapine for insomnia, depression, appetite. We will also start Latuda 20 mg daily with food and titrate up next week. Justification for Continued Inpatient Stay: Patient would decompensate in a less restrictive setting
[2018-09-01 14:25] LABS: Hemoglobin A1c 3.6 % (4.3-6.0)
--- NOTE | 2018-09-01 18:34 | ECHRPT ---
Indication: EFFUSION CONCLUSIONS The left ventricular systolic function is normal with an estimated ejection fraction in the range of 60-65%. There is a moderate pericardial effusion present. No hemodynamically significant echocardiographic features were observed (no pre-tamponade physiology). BP: / HR: Rhythm: Sinus MEASUREMENTS (Male / Female) Normal Values Technical Quality:Technically difficult study 2D ECHO LV Diastolic Diameter PLAX 4.3 cm 4.2 - 5.9 / 3.9 - 5.3 cm LV Systolic Diameter PLAX 2.9 cm IVS Diastolic Thickness 0.7 cm 0.6 - 1.0 / 0.6 - 0.9 cm LVPW Diastolic Thickness 0.6 cm 0.6 - 1.0 / 0.6 - 0.9 cm LV Relative Wall Thickness 0.3 LVOT Diameter 1.9 cm LA Systolic Diameter LX 2.4 cm 3.0 - 4.0 / 2.7 - 3.8 cm M-MODE Aortic Root Diameter MM 2.3 cm AV Cusp Separation MM 2.3 cm DOPPLER AV Peak Velocity 121.5 cm/s AV Peak Gradient 5.9 mmHg LVOT Peak Velocity 78.7 cm/s LVOT Peak Gradient 2.5 mmHg AV Area Cont Eq pk 1.8 cm MV Area PHT 5.6 cm Mitral E Point Velocity 56.8 cm/s Mitral A Point Velocity 50.8 cm/s Mitral E to A Ratio 1.1 PV Peak Velocity 88.2 cm/s PV Peak Gradient 3.1 mmHg FINDINGS LEFT VENTRICLE The left ventricular systolic function is normal with an estimated ejection fraction in the range of 60-65%. Normal left ventricular size. Wall thickness is normal. No regional wall motion abnormalities are present. RIGHT VENTRICLE Normal right ventricular size and systolic function. LEFT ATRIUM The left atrial size is normal. RIGHT ATRIUM The right atrial size is normal. ATRIAL SEPTUM Normal atrial septal thickness AORTA The aortic root and proximal ascending aorta are normal in size on limited imaging. MITRAL VALVE Structurally normal mitral valve. No mitral valve stenosis or regurgitation. AORTIC VALVE Probable trileaflet aortic valve. No aortic valve stenosis or regurgitation. TRICUSPID VALVE Structurally normal tricuspid valve. No tricuspid valve stenosis or regurgitation. PULMONARY VALVE The pulmonary valve is not well visualized. VESSELS The inferior vena cava is normal in size. PERICARDIUM There is a moderate pericardial effusion present. No hemodynamically significant echocardiographic features were observed (no pre-tamponade physiology). Kd Ochoa DO (Electronically Signed) Final Date:01 September 2018 18:33
--- NOTE | 2018-09-01 18:39 | P.PN ---
Subjective Interval history: Follow-up visit for failure to thrive, poor p.o. intake, weight loss and abdominal pain. Nurse reports patient refused MRI today, he has been eating and drinking fluids. Patient seen and examined resting in bed comfortably in no acute distress. Patient reports he does not want to have MRI done, discussed with patient follow-up when discharge as outpatient basis. He denies any fevers, chills, nausea, vomiting, diarrhea, cough, shortness of breath or chest pain. Reports he has been eating, plans to introduce foods slowly, no BM yet, abdominal pain is "so-so". Physical Exam Vital signs: Vital Signs 08/31/18 20:00 09/01/18 05:44 09/01/18 18:06 Temperature 98.0 F 97.6 F 98.3 F Pulse Rate 88 78 81 Respiratory Rate 17 17 17 Blood Pressure 144/97 H 136/88 Pulse Oximetry 99 99 81 L Intake & Output 08/31/18 09/01/18 09/01/18 18:59 06:59 18:59 Intake Total 120 / 120 2480 / 2480 Balance 120 / 120 2480 / 2480 Intake: IV 1999 NS Inj 1,000 ML @ 100 mls/hr IV 1999 .CONT .Q10H RICKY Rx#:[id number] Oral 120 / 120 480 / 480 Other: # Voids 1 1 Narrative: GENERAL: Thin emaciated male resign in bed in no acute distress. SKIN: Warm and dry. HEAD: Atraumatic. Normocephalic. EYES: Pupils equal and round. No scleral icterus. No injection or drainage. ENT: No nasal bleeding or discharge. Mucous membranes pink and moist. NECK: Trachea midline. CARDIOVASCULAR: Regular rate and rhythm with no rubs. RESPIRATORY: No accessory muscle use. Clear to auscultation. Breath sounds equal bilaterally. GASTROINTESTINAL: Abdomen soft, nontender, nondistended. Hypoactive bowel sounds. MUSCULOSKELETAL: Extremities without clubbing, cyanosis, or edema. No obvious deformities. NEUROLOGICAL: Awake, alert, oriented x3. No obvious cranial nerve deficits. Motor grossly within normal limits. Normal speech. PSYCHIATRIC: Flat affect. Results - Labs CBC & Chem 7: 08/30/18 17:08 09/01/18 07:16 Laboratory Results - last 24 hr 09/01/18 09/01/18 07:16 07:16 Sodium 142 Potassium 3.6 Chloride 106 Carbon Dioxide 27.5 Anion Gap 9 BUN 15 Creatinine 0.53 L Estimated GFR Greater than 89 Random Glucose 77 Hemoglobin A1c 3.6 L Calcium 8.4 L Magnesium 1.8 Triglycerides 114 Cholesterol 225 H LDL Cholesterol, Calc 164 H HDL Cholesterol 38.1 L Cholesterol/HDL Ratio 5.90 Assessment and Plan - Plan 58-year-old male with past medical history significant for hypertension who presents to the emergency under ex-parte due to severe depression and failure to thrive. [facility] consulted to assist with medical management. Abdominal pain -s/p lap cholecystectomy 7 weeks. -AST/ALT stable - Abd/pelv CT with small pericardial effusion. Prominent prostate with high density material in the expected region of the prostatic urethra raising the possibility of blood clot. Clinical correlation is recommended. Mild diffuse urinary bladder wall thickening. Right lower pole renal cyst. 6 mm low-density lesion within the right lobe of the liver which is too small for accurate density measurement. MRI of the abdomen with contrast using liver protocol would be helpful for further characterization of this finding if clinically indicated. Mild degenerative changes and scoliosis of the thoracolumbar spine. - ? somatic -MRI ordered, patient has refused to have this done. Discussed with him to have done on an outpatient basis. Hypokalemia, acute -Status post replacement, potassium level this morning 3.6, mag 1.8. Cachexia BMI<19, decreased advance scout strength Weight loss Reported 100lb in the past 2 months - Possibly related to depression and failure to thrive - Lesion noted on abd/pelvis CT scan, order for follow-up MRI, patient has refused this. - Consult dietary for recommendations, start regular diet with Ensure - Trial of megace - Bowel program for constipation - IVF for hydration Hypertension, chronic Previously on lisinopril -Continue lisinopril 5 mg daily, BP stable. DVT prophylaxis-subq heparin Discussed Condition With: Patient and RN
[2018-09-01] MEDS: Mirtazapine 15 MG Tablet PO SCH (20:21)
[2018-09-02] MEDS: Sod Chloride 0.9% Inj 1,000 ML IV.CONT SCH ×2 (03:54→13:00)
--- NOTE | 2018-09-02 07:56 | P.DIET ---
Nutritional Evaluation Type of nutrition evaluation: initial Nutrition screening: [facility] Screening comments: Malnutrition Subjective Subjective Comments: Pt reports a 100lb weight loss after cholecystectomy 2 months ago, he just stopped eating. He reports he body was just not working but he did not want to . Yesterday patient reports he will slowly start eating again. Objective - Diagnosis Bipolar disorder with depression - Objective % IBW: 67 (IBW: 78.2kg) Body Weight Used for Calculations: Actual (52.6kg) Energy Needs - Lower Range (kCal/kg): 35 Energy Needs - Upper Range (kCal/kg): 40 Lower Limit kCal/kg (kCals): 1,841 Upper Limit kCal/kg (kCals): 2,104 Lower Limit Protein Factor (Grams per Kg): 1.2 Upper Limit Protein Factor (Grams per Kg): 1.5 Lower Protein Needs (Protein): 63 Upper Protein Needs (Protein): 79 Fluid Factor (ml/kg): 35 Estimated Fluid Needs (ml): 1,841 Dietitian Reviewed in Medical Record: Current diet, Curent medications, Intake & Output, Labs, Medical history Diet Order: Regular with Ensure TID Objective Comments: PMH: Bipolar disorder Meds noted: Latuda, Megace, Remeron Labs noted: cholesterol 225, LDL 164, HDL 38.1 Assessment Assessment: Pt is at a high nutritional risk related to current clinical status. He is severely underweight, only at 67% of his ideal body weight. Noted pt has begun to eat; some meals up to 75%. Pt's nutritional needs as assessed above. Will replace Ensure with Enlive for additional protein and calories (350kcals, 20gms protein/bottle). Adequate po intake has not yet been established. 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 Will follow pt and monitor po intake. Recommendations: Regular diet with Enlive TID Recommend Theragran M daily Will monitor PO intake Dietitian to Monitor: Lab values, Supplement acceptance, Intake & Output, Diet tolerance, Weight change, PO Intake
[2018-09-02] MEDS: Lisinopril 5 MG Tablet PO SCH (08:04)
[2018-09-02] MEDS: Heparin - SQ 10,000 UNITS/ML Vial SQ SCH ×2 (08:04→20:23)
[2018-09-02] MEDS: Senna/Docusate Sodium 8.6/50 MG Tablet PO SCH (08:04)
[2018-09-02] MEDS: Megestrol Acetate Liq 400 MG/10 ML UDC PO SCH (08:04)
[2018-09-02] MEDS: Sodium Chloride 0.9% 2 ML Flush BID IV.FLUSH SCH ×2 (08:06→20:24)
--- NOTE | 2018-09-02 08:39 | XR ---
EXAM DATE: 09/02/2018 8:32 AM EST AGE/SEX: 58 years / Male INDICATIONS: Shortness of breath. CLINICAL DATA: This is the patient's initial encounter. Patient reports that signs and symptoms have been present for 1 day and indicates a pain score of 0/10. MEDICAL/SURGICAL HISTORY: None. None. COMPARISON: No prior exams available for comparison. FINDINGS: A single AP view of the chest demonstrates the lungs to be symmetrically aerated without evidence of mass, infiltrate or effusion. The cardiomediastinal contours are unremarkable. Osseous structures a re intact. CONCLUSION: No acute intrathoracic disease. Electronically signed by: Jett Marlow MD 09/02/2018 8:37 AM EST
[2018-09-02 11:47] LABS: Alpha Fetoprotein Tumor Marker 1.7 ng/mL (0.5-8.0); Carcinoembryonic Antigen 0.3 ng/mL (0.2-5.0)
[2018-09-02 11:56] LABS: Alanine Aminotransferase 8 U/L (12-78); Albumin 2.5 g/dL (3.4-5.0); Alkaline Phosphatase 38 U/L (45-117); Anion Gap 6 meq/L (5-15); Aspartate Aminotransferase 7 U/L (15-37); Blood Urea Nitrogen 11 mg/dL (7-18); Calcium 7.5 mg/dL (8.5-10.1); Carbon Dioxide 26.6 meq/L (21.0-32.0); Chloride 110 meq/L (98-107); Glomerular Filtration Rate Greater Than 89 mL/min (>89); Glucose,Random 105 mg/dL (74-106); Potassium 3.4 meq/L (3.5-5.1); Sodium 143 meq/L (136-145)
--- NOTE | 2018-09-02 12:08 | P.PN ---
Subjective Interval history: Follow-up on patient with failure to thrive, poor oral intake, weight loss and abdominal pain. Patient seen and examined. Patient says he feels okay. He says he feels like his abdominal pain is improving. He says he has a good appetite. He has not had a bowel movement in 3 days. He denies any nausea or vomiting. He denies any chest pain or shortness of breath. He denies any urinary complaints including dysuria or hematuria. Discussed with nursing staff , patient not eating much. Physical Exam Vital signs: Vital Signs 09/01/18 18:06 09/02/18 05:56 Temperature 98.3 F 98.1 F Pulse Rate 81 78 Respiratory Rate 17 16 Blood Pressure 126/81 Pulse Oximetry 81 L 99 Intake & Output 09/01/18 09/02/18 09/02/18 18:59 06:59 18:59 Intake Total 2480 / 2480 1240 / 1240 Balance 2480 / 2480 1240 / 1240 Intake: IV 1999 / 1999 1000 / 1000 NS Inj 1,000 ML @ 100 mls/hr IV 1999 / 1999 1000 / 1000 .CONT .Q10H RICKY Rx#:[id number] Oral 480 / 480 240 / 240 Other: # Voids 1 1 Narrative: GENERAL: Thin emaciated male, INAD. Awake and alert. Appears comfortable lying in bed. SKIN: Warm and dry. No generalized rash. HEENT: Atraumatic. Normocephalic. Pupils equal and round. No scleral icterus. No injection or drainage. No nasal bleeding or discharge. Mucous membranes pink and moist. NECK: Trachea midline. CARDIOVASCULAR: Tachycardic. No murmur auscultated. RESPIRATORY: No accessory muscle use. Clear to auscultation. Breath sounds equal bilaterally. GASTROINTESTINAL: Abdomen soft, nondistended. Patient denies tenderness to palpation of the abdomen but reports "pressure" with palpation. Hypoactive bowel sounds. MUSCULOSKELETAL: Extremities without clubbing, cyanosis, or edema. No obvious deformities. NEUROLOGICAL: Awake and alert. Oriented x 3. No obvious cranial nerve deficits. Motor grossly within normal limits. Able to move all extremities spontaneously. Normal speech. PSYCHIATRIC: Flat affect. Judgment and insight poor. Results - Labs CBC & Chem 7: 08/30/18 17:08 09/02/18 11:04 Laboratory Results - last 24 hr 09/01/18 07:16 Hemoglobin A1c 3.6 L - Imaging Impressions Chest X-Ray 09/02/18 00:00 CONCLUSION: No acute intrathoracic disease. Assessment and Plan - Plan 58-year-old male with past medical history significant for hypertension who presents to the emergency under ex-parte due to severe depression and failure to thrive. [facility] consulted to assist with medical management. Abdominal pain, possibly somatic but concerning given patient's loss of appetite and extreme weight loss s/p lap cholecystectomy 7 weeks. No N/V, diarrhea, fever/chills AST/ALT stable - Abd/pelv CT with small pericardial effusion. Prominent prostate with high density material in the expected region of the prostatic urethra raising the possibility of blood clot. Clinical correlation is recommended. Mild diffuse urinary bladder wall thickening. Right lower pole renal cyst. 6 mm low-density lesion within the right lobe of the liver which is too small for accurate density measurement. MRI of the abdomen with contrast using liver protocol would be helpful for further characterization of this finding if clinically indicated. Mild degenerative changes and scoliosis of the thoracolumbar spine. - MRI ordered, patient has refused to have this done. Discussed with him to have done on an outpatient basis. - Patient says that his diffuse abdominal pain is improving. But he also says that he has a good appetite and nurse reports that he is been eating very little. Will consult dietitian for calorie count. - tumor markers ordered, PSA, Vitamin D and B12 levels Hypokalemia, acute - resolved s/p replacement - repeat K level pending Cachexia BMI<19 Weight loss Reported 100lb in the past 2 months - Possibly related to depression and failure to thrive - Lesion noted on abd/pelvis CT scan, order for follow-up MRI, patient has refused this. - Ip Litigation Paralegal following, appreciate assistance. Changed supplements to Enlive and started on Theragran-M as recommended. We will also request initiation of calorie count. - Trial of megace - Bowel program for constipation - IVF for hydration Hypertension, chronic Previously on lisinopril -Continue lisinopril 5 mg daily, BP stable. Pericardial effusion Patient has no cardiac complaints - Echocardiogram reveals EF of 60-65% and moderate pericardial effusion, no pre- tamponade physiology observed. VSS. - CXR obtained and unremarkable, images reviewed by me - plan to repeat echo in several days to monitor DVT prophylaxis-subq heparin Code Status: Full Discussed Condition With: patient, nursing staff
--- NOTE | 2018-09-02 13:03 | ECG ---
Date Performed: 09/01/2018 Time Performed: 13:49:25 PTAGE: 58 years EKG: Sinus rhythm NONSPECIFIC ST & T-WAVE ABNORMALITY BORDERLINE ECG NO PREVIOUS TRACING DOCTOR: Kartik Solitario Interpretating Date/Time 09/02/2018 12:59:04
[2018-09-02] MEDS: Multivitamin/Minerals Therapeutic Tablet PO SCH (14:09)
--- NOTE | 2018-09-02 14:10 | P.PNPSY ---
Subjective Chief Complaint: depression Remarks: Patient was seen and case discussed with nursing. There is been a small improvement in p.o. intake. He ate cereal for breakfast and hot cereal with an apple dessert for lunch. Sleep is improved with the mirtazapine. He is compliant with medications. However, he remains in bed throughout the day saying he is too weak to walk. He has suicidal ideation in the mornings. No intent or plan. Mental Status Examination Appearance: Disheveled, Other (Very thin male) Consciousness: Alert (.) Orientation: x4 Motor Activity: Other Speech: Unremarkable Language: Adequate (Remained in bed) Fund of Knowledge: Adequate Attention and Concentration: Adequate Memory: Unremarkable Mood: Sad, Other (Hopeless) Affect: Blunt Thought Process & Associations: Intact, Logical, Goal directed Thought Content: Appropriate Hallucination Type: None Suicidal Ideation: Yes (In the morning) Assessment and Plan - Assessment (1) Bipolar disorder with depression Code(s): F31.30 - Bipolar disorder, current episode depressed, mild or moderate severity, unspecified Status: Acute - Plan Plan: Continue current treatment plan Justification for Continued Inpatient Stay: Patient would decompensate in a less restrictive setting
[2018-09-02] MEDS: Mirtazapine 15 MG Tablet PO SCH (20:23)
[2018-09-03] MEDS: Lisinopril 5 MG Tablet PO SCH (08:48)
[2018-09-03] MEDS: Senna/Docusate Sodium 8.6/50 MG Tablet PO SCH (08:48)
[2018-09-03] MEDS: Multivitamin/Minerals Therapeutic Tablet PO SCH (08:48)
[2018-09-03] MEDS: Heparin - SQ 10,000 UNITS/ML Vial SQ SCH ×2 (08:49→20:09)
[2018-09-03] MEDS: Megestrol Acetate Liq 400 MG/10 ML UDC PO SCH (08:49)
[2018-09-03] MEDS: Sodium Chloride 0.9% 2 ML Flush BID IV.FLUSH SCH ×2 (08:51→20:10)
--- NOTE | 2018-09-03 10:30 | P.PN ---
Subjective Interval history: Follow-up on patient with failure to thrive, poor oral intake, weight loss and abdominal pain. Patient seen and examined. Patient says he is doing ok. He feels his belly pain has improved. His says his appetite is much improved. He is requesting change to a soft diet as he may be able to eat more at one time. He still has not had a bowel movement. He denies any nausea or vomiting. Denies any fever or chills. Denies any chest pain or shortness of breath. Physical Exam Vital signs: Vital Signs 09/02/18 16:14 09/03/18 06:00 Temperature 98.1 F 98.0 F Pulse Rate 80 78 Respiratory Rate 16 18 Blood Pressure 143/88 H 164/97 H Pulse Oximetry 99 100 Intake & Output 09/02/18 09/03/18 09/03/18 18:59 06:59 18:59 Intake Total 1820 / 1820 240 / 240 Output Total 550 / 550 Balance 1820 / 1820 -310 / -310 Weight 54.2 kg Intake: IV 1100 / 1100 NS Inj 1,000 ML @ 100 mls/hr IV 1000 / 1000 .CONT .Q10H RICKY Rx#:[id number] Oral 720 / 720 240 / 240 Output: Urine 550 / 550 Other: # Voids 1 Narrative: GENERAL: Thin emaciated male, INAD. Awake and alert. Appears comfortable lying in bed watching TV. SKIN: Warm and dry. No generalized rash. HEENT: Atraumatic. Normocephalic. EOMI. No scleral icterus. No injection or drainage. No nasal bleeding or discharge. Mucous membranes pink and moist. NECK: Trachea midline. CARDIOVASCULAR: Tachycardic. No murmur auscultated. RESPIRATORY: No accessory muscle use. Clear to auscultation. Breath sounds equal bilaterally. GASTROINTESTINAL: Abdomen soft, nontender, nondistended. Hypoactive bowel sounds. MUSCULOSKELETAL: Extremities without clubbing, cyanosis, or edema. No obvious deformities. NEUROLOGICAL: Awake and alert. Oriented x 3. No obvious cranial nerve deficits. Motor grossly within normal limits. Able to move all extremities spontaneously. Normal speech. PSYCHIATRIC: Flat affect. Judgment and insight poor. Results - Labs CBC & Chem 7: 08/30/18 17:08 09/02/18 11:04 Laboratory Results - last 24 hr 09/02/18 09/02/18 09/02/18 11:04 11:04 11:04 Sodium 143 Potassium 3.4 L Chloride 110 H Carbon Dioxide 26.6 Anion Gap 6 BUN 11 Creatinine 0.65 Estimated GFR Greater than 89 Random Glucose 105 Calcium 7.5 L D Total Bilirubin 0.4 AST 7 L ALT 8 L Alkaline Phosphatase 38 L Ammonia Total Protein 5.0 L D Albumin 2.5 L Tumor Marker AFP Carcinoembryonic Ag CA 19-9 Antigen PSA Screen 0.21 Vitamin B12 738 09/02/18 09/02/18 09/02/18 11:04 11:04 11:04 Sodium Potassium Chloride Carbon Dioxide Anion Gap BUN Creatinine Estimated GFR Random Glucose Calcium Total Bilirubin AST ALT Alkaline Phosphatase Ammonia 14 Total Protein Albumin Tumor Marker AFP 1.7 Carcinoembryonic Ag 0.3 CA 19-9 Antigen Less than 1.2 PSA Screen Vitamin B12 Assessment and Plan - Plan 58-year-old male with past medical history significant for hypertension who presents to the emergency under ex-parte due to severe depression and failure to thrive. [facility] consulted to assist with medical management. Abdominal pain, possibly somatic but concerning given patient's loss of appetite and extreme weight loss s/p lap cholecystectomy 7 weeks No N/V, diarrhea, fever/chills AST/ALT stable - Abd/pelv CT with small pericardial effusion. Prominent prostate with high density material in the expected region of the prostatic urethra raising the possibility of blood clot. Clinical correlation is recommended. Mild diffuse urinary bladder wall thickening. Right lower pole renal cyst. 6 mm low-density lesion within the right lobe of the liver which is too small for accurate density measurement. MRI of the abdomen with contrast using liver protocol would be helpful for further characterization of this finding if clinically indicated. Mild degenerative changes and scoliosis of the thoracolumbar spine. - MRI ordered, patient has refused to have this done. Discussed with him to have done on an outpatient basis. - Patient says that his diffuse abdominal pain is improving. But he also says that he has a good appetite and nurse reports that he is been eating very little. Will consult dietitian for calorie count. - tumor markers unremarkable - PSA WNL - will change to soft diet Hypokalemia K 3.4 - given po repletion - repeat BMP in next 2-3 days Cachexia BMI<19 Weight loss Reported 100lb in the past 2 months - Possibly related to depression and failure to thrive - Lesion noted on abd/pelvis CT scan, order for follow-up MRI, patient has refused this. - Application Assistant following, appreciate assistance. Changed supplements to Enlive and started on Theragran-M as recommended. We will also request initiation of calorie count. - Patient reports improved appetite on Megace, continue - d/c IVF. Encourage p.o. fluid intake - Bowel program for constipation Hypertension, chronic Previously on lisinopril -Continue lisinopril 5 mg daily -Continue to monitor BP and adjust treatment accordingly Pericardial effusion Patient has no cardiac complaints - Echocardiogram reveals EF of 60-65% and moderate pericardial effusion, no pre- tamponade physiology observed. VSS. - CXR obtained and unremarkable, images reviewed by me - Plan to repeat echocardiogram in the next several days to monitor effusion DVT prophylaxis-subq heparin Code Status: Full Discussed Condition With: patient, nursing staff
--- NOTE | 2018-09-03 14:41 | P.PNPSY ---
Subjective Chief Complaint: depression Remarks: Patient seen for follow-up, chart reviewed. Discussion with nursing staff reported that patient continues to have poor p.o. intake, IV fluids discontinued yesterday, continues with intermittent suicide ideations. Patient was found lying hospital bed noted B, cooperative. Patient states that he just ate breakfast but was feeling "a little funky". Patient state his mood has been not too excited of the unknown" referring to when his discharge will be. Patient was encouraged to improve his nutritional intake as well as requiring improvement in physical mobility. Patient states that his mood continues to feel depressed, continues to have intermittent suicide ideations. He mentions having spoken to his parents over the phone. Review of Systems All other systems reviewed negative except as stated in HPI Mental Status Examination Appearance: Disheveled, Other (Appearing malnourished) Consciousness: Alert (.) Orientation: x4 Motor Activity: Other Speech: Unremarkable Language: Adequate (Remained in bed) Fund of Knowledge: Adequate Attention and Concentration: Adequate Memory: Unremarkable Mood: Sad, Other (Hopeless) Affect: Blunt Thought Process & Associations: Intact, Logical, Goal directed Thought Content: Appropriate Hallucination Type: None Suicidal Ideation: Yes (Intermittent) Suicidal Plan: No Suicidal Intention: No Homicidal Ideation: No Homicidal Plan: No Homicidal Intention: No Insight: Fair Judgment: Impulsive Assessment and Plan - Assessment (1) Bipolar disorder with depression Code(s): F31.30 - Bipolar disorder, current episode depressed, mild or moderate severity, unspecified Status: Acute - Plan Plan: Patient this time continues with depressed mood along with intermittent suicide ideations. Patient reports tolerating medications well with no adverse drug reactions and was encouraged to continue to improve nutritional intake as well as participate with physical therapy in groups and activities while on the unit. We will continue to monitor mood and behavior. Discharge planning in progress. Justification for Continued Inpatient Stay: At risk of further decompensation at lower level care.
--- NOTE | 2018-09-03 15:06 | P.DIET ---
Nutritional Evaluation Type of nutrition evaluation: follow-up Nutrition screening: Weight Loss > 10 lbs, [facility] Screening comments: 09/02/18 [facility] Calorie Counting [facility] Malnutrition Subjective Subjective Comments: Pt and RN Zahra informed Calorie Count has been started. Pt says he is drinking the Ensure. Food preferences taken. Encouraged pt to order from his menu daily. Brought forward from previous note:Pt reports a 100lb weight loss after cholecystectomy 2 months ago, he just stopped eating. He reports he body was just not working but he did not want to . Yesterday patient reports he will slowly start eating again. Objective - Diagnosis Bipolar disorder with depression - Objective % IBW: 67 (IBW: 78.2kg) Body Weight Used for Calculations: Actual (52.6kg) Energy Needs - Lower Range (kCal/kg): 35 Energy Needs - Upper Range (kCal/kg): 40 Lower Limit kCal/kg (kCals): 1,841 Upper Limit kCal/kg (kCals): 2,104 Lower Limit Protein Factor (Grams per Kg): 1.2 Upper Limit Protein Factor (Grams per Kg): 1.5 Lower Protein Needs (Protein): 63 Upper Protein Needs (Protein): 79 Fluid Factor (ml/kg): 35 Estimated Fluid Needs (ml): 1,841 Dietitian Reviewed in Medical Record: Current diet, Curent medications, Intake & Output, Labs, Medical history Diet Order: Regular with Ensure TID Oral Diet Intake Amount: Good 75-90% Objective Comments: PMH: Bipolar disorder Meds include: Latuda, Megace, Remeron, Theragran M Labs include: A1C 3.6 Feeding - Current PO Supplement Current Supplement: Ensure Enlive Current Frequency of Supplement: Three times a day Current kCals Provided by Supplement: 350 Current Protein Provided by Supplement: 20 Assessment Assessment: Pt continues at high nutritional r/t recent reported wt loss 100-lb over the past 2-months and low BMI 16.7. He is severely underweight, w/67% of his ideal body weight. Noted pt has begun to eat w/adequate po intake greater than 50%. [facility] for Calorie Count 09/03/18 through 09/05/18 w/Nutrition Recs to follow 09/06. Continue Ensure Enlive TID. Girard pt food preferences. Encouraged pt to make his own menu selections daily. Pt now receiving Theragran M QD to provide 100% of CONDITIONING MACHINE OPERATOR's. Noted Russel started 09/01/18. Recommendations: 1. [facility] for Calorie Count 09/03/18 through 09/05/18 w/Nutrition Recs to follow 2. Continue Ensure Enlive TID 3. Girard pt food preferences 4. Encouraged pt to make his own menu selections daily 5. Pt now receiving Theragran M QD to provide 100% of CONDITIONING MACHINE OPERATOR's 6. Noted Russel started 09/01/18 Dietitian to Monitor: Lab values, Supplement acceptance, Intake & Output, Diet tolerance, Weight change, PO Intake, Medical course
[2018-09-03] MEDS: Mirtazapine 15 MG Tablet PO SCH (20:09)
[2018-09-04] MEDS: Sodium Chloride 0.9% 2 ML Flush BID IV.FLUSH SCH ×2 (08:04→21:28)
[2018-09-04] MEDS: Megestrol Acetate Liq 400 MG/10 ML UDC PO SCH (08:04)
[2018-09-04] MEDS: Lisinopril 5 MG Tablet PO SCH (08:04)
[2018-09-04] MEDS: Multivitamin/Minerals Therapeutic Tablet PO SCH (08:04)
[2018-09-04] MEDS: Senna/Docusate Sodium 8.6/50 MG Tablet PO SCH (08:04)
[2018-09-04] MEDS: Heparin - SQ 10,000 UNITS/ML Vial SQ SCH ×2 (08:05→21:18)
--- NOTE | 2018-09-04 08:10 | P.PNPSY ---
Subjective Chief Complaint: depression Remarks: Patient seen for follow-up, chart reviewed. Discussion with nursing staff reported that patient continues with poor intake but noted patient with effort to eat more, continues to have weakness. Patient was found lying hospital bed was able to sit up for interview today. Patient states that he had some difficulty sleeping last night but states he is trying to eat more. He states that he is unable to stand due to weakness but is agreeable to go to groups of taken down a chair. He continues report feeling depressed along with intermittent suicide ideation last time being last night. Discussion of having patient agreed to MRI was reviewed which patient this time states that he will consider it at this time and stating having been aware of results from CT scan as explained to him by the hospitalist. Review of Systems All other systems reviewed negative except as stated in HPI Mental Status Examination Appearance: Disheveled, Other (Appearing malnourished) Consciousness: Alert (.) Orientation: x4 Motor Activity: Other Speech: Unremarkable Language: Adequate (Remained in bed) Fund of Knowledge: Adequate Attention and Concentration: Adequate Memory: Unremarkable Mood: Sad, Other (Hopeless) Affect: Sad Thought Process & Associations: Intact, Logical, Goal directed Thought Content: Appropriate Hallucination Type: None Suicidal Ideation: Yes (Intermittent) Suicidal Plan: No Suicidal Intention: No Homicidal Ideation: No Homicidal Plan: No Homicidal Intention: No Insight: Fair Judgment: Impulsive Assessment and Plan - Assessment (1) Bipolar disorder with depression Code(s): F31.30 - Bipolar disorder, current episode depressed, mild or moderate severity, unspecified Status: Acute - Plan Plan: Patient this time continues with poor p.o. intake but is noted to have been making efforts to increase his p.o. nutritional intake. Patient compliant with medications. Patient continues with depressed mood but noted with more motivation to improve now. Continues to have intermittent suicide ideation. Continue to encourage patient to maintain increase in nutritional intake as well as assistance and participation in groups and activities. Patient will continue to work with physical therapy. Latuda recently increased therefore we will continue current regimen for now. Will add diphenhydramine 50mg as needed for sleep disturbance. Discharge planning a progress. Justification for Continued Inpatient Stay: At risk of further decompensation at lower level care.
[2018-09-04 08:33] LABS: Anion Gap 6 meq/L (5-15); Blood Urea Nitrogen 11 mg/dL (7-18); Calcium 8.5 mg/dL (8.5-10.1); Carbon Dioxide 24.9 meq/L (21.0-32.0); Chloride 108 meq/L (98-107); Glomerular Filtration Rate Greater Than 89 mL/min (>89); Glucose,Random 87 mg/dL (74-106); Potassium 3.9 meq/L (3.5-5.1); Sodium 139 meq/L (136-145)
--- NOTE | 2018-09-04 10:40 | P.TTN ---
- Patient Problems Problems: 1. Discharge planning 2. Medication compliance 3. Knowledge deficit 4. Lack of coping skills - Progress Toward Goals Provider Present: Dr. Jana Delarosa Provider Input: 09/03/2018 Biopolar, depression and Suicidal Ideation. Lost 100 olbs after gall bladder surgery. Has sores on himself from laying down so much. Nurse Input: 09/03/2018 Eating very minimal on the unit Psychiatric Counselors Present: Other Psychiatric Therapist Input: 09/03/2018 Psychiatrist will order a cell pourer consult due to possible eating disorder after loosing so much eright. Will work on goals of treatment also. Group Spec/RT/OT/MIMS Present: Other Group Spec/RT/OT/MIMS Input: 09/03/2018 Has not participated - Documentation Teaching Recipient: Patient
--- NOTE | 2018-09-04 11:08 | P.PN ---
Subjective Interval history: Follow-up on patient with failure to thrive, poor oral intake, weight loss and abdominal pain. Patient seen and examined. Patient says that he is had a previous history of pericardial effusion. Patient was seen by a digital press operator 2 years ago at [facility]. He was told that he did not need any follow-up. Patient has not had any cardiac complaints. Continues to report improved appetite. He is not sure whether or not his diet was changed to soft but did receive meat loaf last night. He denies any fever or chills. He denies any chest pain or shortness of breath. He has not had a bowel movement as of yet. Calorie count is in progress. Physical Exam Vital signs: Vital Signs 09/03/18 16:02 09/04/18 06:00 Temperature 98.2 F 97.8 F Pulse Rate 90 93 H Respiratory Rate 16 15 Blood Pressure 145/92 H 128/82 Pulse Oximetry 99 99 Intake & Output 09/03/18 09/04/18 09/04/18 18:59 06:59 18:59 Intake Total 960 / 960 960 / 960 Balance 960 / 960 960 / 960 Intake: Oral 960 / 960 960 / 960 Other: # Voids 2 2 Narrative: GENERAL: Thin emaciated male. Awake and alert. Appears comfortable lying in bed. In no acute distress. SKIN: Warm and dry. No generalized rash. HEENT: Atraumatic. Normocephalic. Pupils equal and round. No scleral icterus. No injection or drainage. No nasal bleeding or discharge. Mucous membranes pink and moist. NECK: Trachea midline. CARDIOVASCULAR: Tachycardic. No murmur auscultated. RESPIRATORY: No accessory muscle use. Clear to auscultation. Breath sounds equal bilaterally. GASTROINTESTINAL: Abdomen soft, nondistended. Patient denies tenderness to palpation of the abdomen but reports "pressure" with palpation. Hypoactive bowel sounds. MUSCULOSKELETAL: Extremities without clubbing, cyanosis, or edema. No obvious deformities. NEUROLOGICAL: Awake and alert. Oriented x 3. No obvious cranial nerve deficits. Motor grossly within normal limits. Able to move all extremities spontaneously. Normal speech. PSYCHIATRIC: Flat affect. Judgment and insight poor. Results - Labs CBC & Chem 7: 08/30/18 17:08 09/04/18 07:24 Laboratory Results - last 24 hr 09/04/18 07:24 Sodium 139 Potassium 3.9 Chloride 108 H Carbon Dioxide 24.9 Anion Gap 6 BUN 11 Creatinine 0.60 Estimated GFR Greater than 89 Random Glucose 87 Calcium 8.5 D Assessment and Plan - Plan 58-year-old male with past medical history significant for hypertension who presents to the emergency under ex-parte due to severe depression and failure to thrive. [facility] consulted to assist with medical management. Abdominal pain, possibly somatic but concerning given patient's loss of appetite and extreme weight loss, improving s/p lap cholecystectomy 7 weeks. No N/V, diarrhea, fever/chills AST/ALT stable Abd/pelv CT with small pericardial effusion. Prominent prostate with high density material in the expected region of the prostatic urethra raising the possibility of blood clot. Clinical correlation is recommended. Mild diffuse urinary bladder wall thickening. Right lower pole renal cyst. 6 mm low-density lesion within the right lobe of the liver which is too small for accurate density measurement. MRI of the abdomen with contrast using liver protocol would be helpful for further characterization of this finding if clinically indicated. Mild degenerative changes and scoliosis of the thoracolumbar spine. - MRI ordered, patient has refused to have this done. Discussed with him to have done on an outpatient basis. - Patient says that his diffuse abdominal pain is improving. He reports much improved appetite. Calorie count in progress. - tumor markers unremarkable - PSA WNL Hypokalemia, acute - resolved s/p replacement - monitor K level as indicated Cachexia BMI<19 Weight loss Reported 100lb in the past 2 months - Possibly related to depression and failure to thrive - Lesion noted on abd/pelvis CT scan, order for follow-up MRI, patient has refused this. - [employer] following, appreciate assistance. Changed supplements to Enlive and started on Theragran-M as recommended. Calorie count in progress as above - reports improved appetite on Megace, continue - Bowel program for constipation - 2kg wt gain since admission Hypertension, chronic Previously on lisinopril -Continue lisinopril 5 mg daily, BP stable. Pericardial effusion Patient has no cardiac complaints - Echocardiogram reveals EF of 60-65% and moderate pericardial effusion, no pre- tamponade physiology observed. VSS. - CXR obtained and unremarkable, images reviewed by me - 09/04 patient informs me that he was told previously that he had fluid around his heart. He was evaluated by digital press operator at [facility] who did not recommend any further workup or treatment peer DVT prophylaxis-subq heparin Code Status: Full Discussed Condition With: patient, nursing staff
[2018-09-04] MEDS: Mirtazapine 15 MG Tablet PO SCH (21:19)
[2018-09-05] MEDS: Megestrol Acetate Liq 400 MG/10 ML UDC PO SCH (08:40)
[2018-09-05] MEDS: Heparin - SQ 10,000 UNITS/ML Vial SQ SCH ×2 (08:40→21:17)
[2018-09-05] MEDS: Multivitamin/Minerals Therapeutic Tablet PO SCH (08:41)
[2018-09-05] MEDS: Sodium Chloride 0.9% 2 ML Flush BID IV.FLUSH SCH ×2 (08:41→21:16)
[2018-09-05] MEDS: Lisinopril 5 MG Tablet PO SCH (08:41)
[2018-09-05] MEDS: Senna/Docusate Sodium 8.6/50 MG Tablet PO SCH (08:41)
[2018-09-05] MEDS ORDERED: Polyethylene Glycol 3350 17 GM Packet PO ONE (10:34)
--- NOTE | 2018-09-05 10:36 | P.PN ---
Subjective Interval history: Follow-up on patient with failure to thrive, poor oral intake, weight loss and abdominal pain. Patient seen and examined. Patient states that he is feeling little better. He reports improved appetite. He denies any abdominal pain. Denies any fever or chills. Denies any chest pain or shortness of breath. Discussed with nursing staff, patient is consuming more during mealtimes. Advised patient he needs to get out of bed and walk around the unit as much as possible. Patient stated understanding. Physical Exam Vital signs: Vital Signs 09/04/18 18:29 Temperature 98.6 F Pulse Rate 96 H Respiratory Rate 18 Pulse Oximetry 99 Intake & Output 09/04/18 09/05/18 09/05/18 18:59 06:59 18:59 Intake Total 600 / 600 600 / 600 Balance 600 / 600 600 / 600 Intake: Oral 600 / 600 600 / 600 Other: # Voids 2 2 Narrative: GENERAL: Thin emaciated male, INAD. Awake and alert. Appears comfortable lying in bed. SKIN: Warm and dry. No generalized rash. HEENT: Atraumatic. Normocephalic. Pupils equal and round. No scleral icterus. No injection or drainage. No nasal bleeding or discharge. Mucous membranes pink and moist. NECK: Trachea midline. CARDIOVASCULAR: Tachycardic. No murmur auscultated. RESPIRATORY: No accessory muscle use. Clear to auscultation. Breath sounds equal bilaterally. GASTROINTESTINAL: Abdomen soft, nondistended, nontender. +BS. MUSCULOSKELETAL: Extremities without clubbing, cyanosis, or edema. No obvious deformities. NEUROLOGICAL: Awake and alert. Oriented x 3. No obvious cranial nerve deficits. Motor grossly within normal limits. Able to move all extremities spontaneously. Normal speech. PSYCHIATRIC: Flat affect. Judgment and insight poor. Results - Labs CBC & Chem 7: 08/30/18 17:08 09/04/18 07:24 Assessment and Plan - Plan 58-year-old male with past medical history significant for hypertension who presents to the emergency under ex-parte due to severe depression and failure to thrive. [facility] consulted to assist with medical management. Abdominal pain, possibly somatic but concerning given patient's loss of appetite and extreme weight loss, improving s/p lap cholecystectomy 7 weeks. No N/V, diarrhea, fever/chills AST/ALT stable Abd/pelv CT with small pericardial effusion. Prominent prostate with high density material in the expected region of the prostatic urethra raising the possibility of blood clot. Clinical correlation is recommended. Mild diffuse urinary bladder wall thickening. Right lower pole renal cyst. 6 mm low-density lesion within the right lobe of the liver which is too small for accurate density measurement. MRI of the abdomen with contrast using liver protocol would be helpful for further characterization of this finding if clinically indicated. Mild degenerative changes and scoliosis of the thoracolumbar spine. - MRI ordered, patient has refused to have this done. Discussed with him to have done on an outpatient basis. - Patient says that his diffuse abdominal pain is improving. He reports much improved appetite. Calorie count in progress. - tumor markers unremarkable - PSA WNL - urine cytology negative for malignant cells Hypokalemia, acute - resolved s/p replacement - monitor K level as indicated Cachexia BMI<19 Weight loss Reported 100lb in the past 2 months - Possibly related to depression and failure to thrive - Lesion noted on abd/pelvis CT scan, order for follow-up MRI, patient has refused this. - Criminology Teacher following, appreciate assistance. Changed supplements to Enlive and started on Theragran-M as recommended. Calorie count in progress as above - reports improved appetite on Megace, continue - Bowel program for constipation. Still no BM. Add on Miralax. Continue with Jazz Colace BID. - 2kg wt gain since admission Hypertension, chronic Previously on lisinopril -Continue lisinopril 5 mg daily, BP stable. Pericardial effusion Patient has no cardiac complaints - Echocardiogram reveals EF of 60-65% and moderate pericardial effusion, no pre- tamponade physiology observed. VSS. - CXR obtained and unremarkable, images reviewed by me - 09/04 patient informs me that he was told previously that he had fluid around his heart. He was evaluated by event planning manager at [facility] who did not recommend any further workup or treatment peer DVT prophylaxis-subq heparin Code Status: Full Discussed Condition With: patient, nursing staff
--- NOTE | 2018-09-05 13:20 | P.PNPSY ---
Subjective Chief Complaint: depression Remarks: Patient seen for follow up; chart reviewed. Discussion with nursing staff reported that patient went to groups yesterday but was unable to tolerate much but was able to attend. Patient was found lying in hospital bed noted to be calm and cooperative. Patient stated he is appetite and his energy is slowly improving, did not have any visitors but states having conversation over the phone with his parents. He did continue to report feeling depressed which she states is improving but denying any suicidal ideations today. Patient reports sleeping well, no adverse drug reaction for medications and states that he is motivated to live for his family, personal goals and wanted on the gym one day. Review of Systems All other systems reviewed negative except as stated in HPI Mental Status Examination Appearance: Disheveled, Other (Appearing malnourished) Consciousness: Alert (.) Orientation: x4 Motor Activity: Other Speech: Unremarkable Language: Adequate (Remained in bed) Fund of Knowledge: Adequate Attention and Concentration: Adequate Memory: Unremarkable Mood: Sad Affect: Sad Thought Process & Associations: Intact, Logical, Goal directed Thought Content: Appropriate Hallucination Type: None Delusion Type: None Suicidal Ideation: Yes (denies today) Suicidal Plan: No Suicidal Intention: No Homicidal Ideation: No Homicidal Plan: No Homicidal Intention: No Insight: Fair Judgment: Impulsive Assessment and Plan - Assessment (1) Bipolar disorder with depression Code(s): F31.30 - Bipolar disorder, current episode depressed, mild or moderate severity, unspecified Status: Acute - Plan Plan: Patient this time noted to report decreased depressed mood, denying any suicidal ideations today last time being yesterday evening. Patient reporting slow improvement in energy and appetite but continues to have significant weakness which he will will continue to require physical therapy. We will continue current treatment. We will continue to monitor with behavior. Discharge planning in progress. Justification for Continued Inpatient Stay: At risk of further decompensation at lower level care.
[2018-09-05] MEDS: Mirtazapine 15 MG Tablet PO SCH (21:17)
[2018-09-06] MEDS: Lisinopril 5 MG Tablet PO SCH (09:28)
[2018-09-06] MEDS: Multivitamin/Minerals Therapeutic Tablet PO SCH (09:28)
[2018-09-06] MEDS: Sodium Chloride 0.9% 2 ML Flush BID IV.FLUSH SCH ×2 (09:29→20:58)
[2018-09-06] MEDS: Megestrol Acetate Liq 400 MG/10 ML UDC PO SCH (09:29)
[2018-09-06] MEDS: Heparin - SQ 10,000 UNITS/ML Vial SQ SCH ×2 (09:29→20:54)
[2018-09-06] MEDS: Senna/Docusate Sodium 8.6/50 MG Tablet PO SCH (09:29)
--- NOTE | 2018-09-06 12:47 | P.PNPSY ---
Subjective Chief Complaint: depression Remarks: Patient seen for follow-up, chart reviewed. Discussion with nursing staff reported that patient no behavioral disturbances, compliant with medications, ate breakfast this morning but not attending groups. Patient was found sitting in hospital bed noted to be calm and cooperative. Patient stated he has been "lying" and regards to how he has been feeling. He states that he continues to report feeling depressed and continues to have intermittent suicide ideation last time being this morning. He mentions that he does not feel he will do well at home believing that he is having "stomach issues" although reported that he is not decreasing his p.o. nutritional intake. He reports his sleep is "on and off" denies having gone to any groups and was encouraged to do so. He states that physical therapy was able to work with him which he was able to stand for about 25 seconds and states that he is continued to be motivated to increase disability. He reports having spoken to his mother but does not elaborate. Patient denies any perceptual disturbances at this time. Review of Systems All other systems reviewed negative except as stated in HPI Mental Status Examination Appearance: Disheveled, Other (Appearing malnourished) Consciousness: Alert (.) Orientation: x4 Motor Activity: Other Speech: Unremarkable Language: Adequate (Remained in bed) Fund of Knowledge: Adequate Attention and Concentration: Adequate Memory: Unremarkable Mood: Sad Affect: Sad Thought Process & Associations: Intact, Logical, Goal directed Thought Content: Appropriate Hallucination Type: None Delusion Type: None Suicidal Ideation: Yes Suicidal Plan: No Suicidal Intention: No Homicidal Ideation: No Homicidal Plan: No Homicidal Intention: No Insight: Fair Judgment: Impulsive Assessment and Plan - Assessment (1) Bipolar disorder with depression Code(s): F31.30 - Bipolar disorder, current episode depressed, mild or moderate severity, unspecified Status: Acute - Plan Plan: Patient continues to have intermittent suicidal ideation continue or feel depressed but it is noted to have more motivation in increasing her nutritional intake and working with physical therapy. We will increase mirtazapine to 30 mg p.o. at bedtime for depression, continue rest of medications. Continue to monitor mood and behavior. Discharge planning in progress. Justification for Continued Inpatient Stay: At risk of further decompensation at lower level care. Discharge Planning: Patient will likely require health and rehab post discharge once psychiatrically stable.
[2018-09-06] MEDS: Mirtazapine 15 MG Tablet PO SCH ×2 (13:35→20:54)
--- NOTE | 2018-09-06 13:44 | P.DIET ---
Nutritional Evaluation Type of nutrition evaluation: follow-up Nutrition screening: Weight Loss > 10 lbs, [facility] Screening comments: 09/02/[address] [facility] Malnutrition Subjective Subjective Comments: Brought forward from previous note 09/03/18: Food preferences taken. Encouraged pt to order from his menu daily. Brought forward from previous note 09/02/18: Pt reports a 100lb weight loss after cholecystectomy 2 months ago, he just stopped eating. He reports he body was just not working but he did not want to . Yesterday patient reports he will slowly start eating again. Objective - Diagnosis Bipolar disorder with depression - Objective % IBW: 67 (IBW: 78.2kg) Body Weight Used for Calculations: Actual (52.6kg) Energy Needs - Lower Range (kCal/kg): 35 Energy Needs - Upper Range (kCal/kg): 40 Lower Limit kCal/kg (kCals): 1,841 Upper Limit kCal/kg (kCals): 2,104 Lower Limit Protein Factor (Grams per Kg): 1.2 Upper Limit Protein Factor (Grams per Kg): 1.5 Lower Protein Needs (Protein): 63 Upper Protein Needs (Protein): 79 Fluid Factor (ml/kg): 35 Estimated Fluid Needs (ml): 1,841 Dietitian Reviewed in Medical Record: Current diet, Curent medications, Intake & Output, Labs, Medical history Diet Order: Regular with Ensure TID Oral Diet Intake Amount: Good 75-90% Objective Comments: PMH: Bipolar disorder Meds include: Latuda, Megace, Remeron, Theragran M Labs include: A1C 3.6 Feeding - Current PO Supplement Current Supplement: Ensure Enlive Current Frequency of Supplement: Three times a day Current kCals Provided by Supplement: 350 Current Protein Provided by Supplement: 20 - kCal Count Day 1 kCal Intake: 2,350 Day 1 Protein Intake: 133 Day 2 kCal Intake: 1,490 Day 2 Protein Intake: 82 Day 3 kCal Intake: 1,750 Day 3 Protein Intake: 99 kCal Comments: Day#3: two meals documented Assessment Assessment: Pt continues at high nutritional r/t recent reported wt loss 100-lb over the past 2-months and low BMI 16.7. He is severely underweight, w/67% of his ideal body weight. [facility] for Calorie Count 09/03/18 through 09/05/18 w/Adequate PO Intake 100% for assessed kcal and protein needs. Continue Ensure Enlive TID. Continue to [place] pt food preferences. Encouraged pt to continue to make his own menu selections daily. Pt receiving Theragran M QD to provide 100% of [employer]' s. Noted Russel started 09/01/18. Wt noted. Recommendations: 1. MDC for Calorie Count 09/03/18 through 09/05/18 w/Adequate PO Intake 100% for assessed kcal and protein needs 2. Continue Ensure Enlive TID 3. Continue to [place] pt food preferences 4. Encouraged pt to continue to make his own menu selections daily 5. Pt receiving Theragran M QD to provide 100% of [employer]'s 6. Noted Russel started 09/01/18 Dietitian to Monitor: Lab values, Supplement acceptance, Intake & Output, Diet tolerance, Weight change, PO Intake, Medical course
[2018-09-06 17:54] LABS: Vitamin D 1,25-Dihydroxy 15 pg/mL (18-72)
--- NOTE | 2018-09-07 08:59 | P.PNPSY ---
Subjective Chief Complaint: depression Remarks: Patient seen for follow-up, chart reviewed. Discussion with nursing staff reported that patient has slept last evening, has not had bowel movement several days now, progressively noted to start eating more continued with flat affect. Patient was found lying in hospital bed noted to not have bathed in several days stating that he is feeling "the same as yesterday", referring to feeling depressed stating that he continues to have daily suicidal ideation intermittently. Patient states that he is attempting to eat more, has not attended any groups or activities despite encouragement daily patient to do this. He reports that he is tolerating medications well with no adverse drug reactions. Patient also noted to have some anxiety with engaging in further physical activity but was reiterated that he has staff to assist him with any physical activity. Patient continues with anhedonia, flat affect and poor motivation. He denies any perceptional shortness of delusions. Review of Systems All other systems reviewed negative except as stated in HPI Mental Status Examination Appearance: Disheveled, Other (Appearing malnourished) Consciousness: Alert (.) Orientation: x4 Motor Activity: Other Speech: Unremarkable Language: Adequate (Remained in bed) Fund of Knowledge: Adequate Attention and Concentration: Adequate Memory: Unremarkable Mood: Sad Affect: Sad Thought Process & Associations: Intact, Logical, Goal directed Thought Content: Appropriate Hallucination Type: None Delusion Type: None Suicidal Ideation: Yes (Intermittently) Suicidal Plan: No Suicidal Intention: No Homicidal Ideation: No Homicidal Plan: No Homicidal Intention: No Insight: Fair Judgment: Impulsive Assessment and Plan - Assessment (1) Bipolar disorder with depression Code(s): F31.30 - Bipolar disorder, current episode depressed, mild or moderate severity, unspecified Status: Acute - Plan Plan: Patient at this time continues with continued depressed mood, intermittent suicidal ideation, poor motivation and required much encouragement for ADLs. Discussion of having patient take a shower today with assistance was reviewed although noted to have reluctance as well as participation in groups and activities. Mirtazapine recently increased yesterday. We will continue current treatment for now. Continue calorie count. We will continue to monitor mood and behavior. Continue to encourage patient to maintain personal hygiene as well as to participate in groups and activities while the unit. Discharge planning in progress. Justification for Continued Inpatient Stay: At risk of further decompensation at lower level care.
[2018-09-07] MEDS: Lisinopril 5 MG Tablet PO SCH (09:33)
[2018-09-07] MEDS: Multivitamin/Minerals Therapeutic Tablet PO SCH (09:33)
[2018-09-07] MEDS: Heparin - SQ 10,000 UNITS/ML Vial SQ SCH ×2 (09:33→21:15)
[2018-09-07] MEDS: Megestrol Acetate Liq 400 MG/10 ML UDC PO SCH (09:33)
[2018-09-07] MEDS: Senna/Docusate Sodium 8.6/50 MG Tablet PO SCH ×2 (09:34→21:15)
[2018-09-07] MEDS: Sodium Chloride 0.9% 2 ML Flush BID IV.FLUSH SCH ×2 (09:34→21:16)
--- NOTE | 2018-09-07 10:57 | P.PNIM ---
Subjective Interval history: Follow up on patient with FTT, poor oral intake, weight loss and abdominal pain. Patient seen and examined. Patient completed his calorie count and has adequate intake. Patient has been eating 100% of his meals. He still has not had a bowel movement in 4 days. He is resistant to using a suppository or enema at this time. He is passing flatus. Patient to get up and walk around the unit as much as possible. If no bowel movement by tomorrow we will need to escalate the bowel regimen. Patient is agreeable. Patient says he feels full. He denies any nausea, vomiting or change in persistent abdominal pain. Physical Exam Vital signs: Last Vital Signs Temp 98.1 F 09/07/18 06:28 Pulse 101 H 09/07/18 06:28 Resp 16 09/07/18 06:28 BP 117/72 09/07/18 06:28 Pulse Ox 98 09/07/18 06:28 Intake & Output 09/05/18 09/06/18 09/07/18 09/08/18 06:59 06:59 06:59 06:59 Intake Total 1200 / 1200 1320 / 1320 1560 / 1560 Output Total 800 / 800 550 / 550 Balance 1200 / 1200 520 / 520 1010 / 1010 Narrative: GENERAL: Thin emaciated male, INAD. Awake and alert. Appears comfortable lying in bed watching tv. SKIN: Warm and dry. No generalized rash. HEENT: Atraumatic. Normocephalic. Pupils equal and round. No scleral icterus. No injection or drainage. No nasal bleeding or discharge. Mucous membranes pink and moist. NECK: Trachea midline. CARDIOVASCULAR: Tachycardic. No murmur auscultated. RESPIRATORY: No accessory muscle use. Clear to auscultation. Breath sounds equal bilaterally. GASTROINTESTINAL: Abdomen soft, nondistended, nontender. +BS noted. MUSCULOSKELETAL: Extremities without clubbing, cyanosis, or edema. No obvious deformities. NEUROLOGICAL: Awake and alert. Oriented x 3. No obvious cranial nerve deficits. Motor grossly within normal limits. Able to move all extremities spontaneously. Normal speech. PSYCHIATRIC: Flat affect. Judgment and insight poor. Results Labs CBC & Chem 7: 08/30/18 17:08 09/04/18 07:24 Assessment and Plan Plan 58-year-old male with past medical history significant for hypertension who presents to the emergency under ex-parte due to severe depression and failure to thrive. [facility] consulted to assist with medical management. Abdominal pain, possibly somatic but concerning given patient's loss of appetite and extreme weight loss, improving s/p lap cholecystectomy 7 weeks. No N/V, diarrhea, fever/chills AST/ALT stable Abd/pelv CT with small pericardial effusion. Prominent prostate with high density material in the expected region of the prostatic urethra raising the possibility of blood clot. Clinical correlation is recommended. Mild diffuse urinary bladder wall thickening. Right lower pole renal cyst. 6 mm low-density lesion within the right lobe of the liver which is too small for accurate density measurement. MRI of the abdomen with contrast using liver protocol would be helpful for further characterization of this finding if clinically indicated. Mild degenerative changes and scoliosis of the thoracolumbar spine. - MRI ordered, patient has refused to have this done. Discussed with him to have done on an outpatient basis. - Patient says that his diffuse abdominal pain is improving. He reports much improved appetite. Calorie count completed, adequate nutritional intake. - tumor markers unremarkable - PSA WNL - urine cytology negative for malignant cells Hypokalemia, acute - resolved s/p replacement - monitor K level as indicated Cachexia BMI<19 Weight loss Reported 100lb in the past 2 months - Possibly related to depression and failure to thrive - Lesion noted on abd/pelvis CT scan, order for follow-up MRI, patient has refused this. - Chief Order Dispatcher following, appreciate assistance. Changed supplements to Enlive and started on Theragran-M as recommended. Calorie count in progress as above - reports improved appetite on Megace, continue - 2kg wt gain since admission Constipation no BM x 4 days - Pericolace 2 po now. Continue on Pericolace 1 po BID. Give Miralax now. Patient refusing suppository or enema at this time. Dulcolax supp prn. - Encourage patient to get up move around the unit. Hypertension, chronic Previously on lisinopril -Continue lisinopril 5 mg daily, BP stable. Pericardial effusion Patient has no cardiac complaints - Echocardiogram reveals EF of 60-65% and moderate pericardial effusion, no pre- tamponade physiology observed. VSS. - CXR obtained and unremarkable, images reviewed by me - 09/04 patient informs me that he was told previously that he had fluid around his heart. He was evaluated by quality associate at [facility] who did not recommend any further workup or treatment Vitamin D deficiency Vitamin D level 15 -give 50,000units ergocalciferol q. 7 days x4, followed by daily po repletion -Patient will need to have vitamin D level rechecked in 2-3 months as outpatient DVT prophylaxis-subq heparin Progress Note: Quality VTE Deep Vein Thrombosis/Pulmonary Embolism Present on Admission: No
[2018-09-07] MEDS ORDERED: Bisacodyl 10 MG Supp RECTAL PRN (11:29)
[2018-09-07] MEDS ORDERED: Senna/Docusate Sodium 8.6/50 MG Tablet PO ONE (11:45)
[2018-09-07] MEDS ORDERED: Polyethylene Glycol 3350 17 GM Packet PO ONE (12:00)
[2018-09-07] MEDS: Mirtazapine 15 MG Tablet PO SCH (21:15)
--- NOTE | 2018-09-08 09:40 | P.PNPSY ---
Subjective Chief Complaint: depression Remarks: Patient seen in his room with nurse. Chart reviewed. Patient compliant medication. Patient quite thin and emaciated though overall alert oriented.. He is somewhat depressed and frustrated and perhaps embarrassed over his weakness in his dependence on the staff related to his ADLs and bowel function. For now continue treatment he does denies suicidality voices or visions. Review of Systems All other systems reviewed negative except as stated in HPI Mental Status Examination Appearance: Disheveled, Other (Appearing malnourished) Consciousness: Alert (.) Orientation: x4 Motor Activity: Other Speech: Unremarkable Language: Adequate (Remained in bed) Fund of Knowledge: Adequate Attention and Concentration: Adequate Memory: Unremarkable Mood: Sad Affect: Other (Slight decreased range and intensity) Thought Process & Associations: Intact, Logical, Goal directed Thought Content: Appropriate Hallucination Type: None Delusion Type: None Suicidal Ideation: Yes (Intermittently) Suicidal Plan: No Suicidal Intention: No Homicidal Ideation: No Homicidal Plan: No Homicidal Intention: No Insight: Fair Judgment: Impulsive Assessment and Plan - Assessment (1) Bipolar disorder with depression Code(s): F31.30 - Bipolar disorder, current episode depressed, mild or moderate severity, unspecified Status: Acute - Plan Plan: Patient remains depressed, frustrated today denying suicidality albeit somewhat vaguely. He is compliant with medication Justification for Continued Inpatient Stay: At this time patient with decompensated placed on a lower level of care Discharge Planning: To be determined
[2018-09-08] MEDS: Lisinopril 5 MG Tablet PO SCH (09:54)
[2018-09-08] MEDS: Heparin - SQ 10,000 UNITS/ML Vial SQ SCH ×2 (09:55→20:34)
[2018-09-08] MEDS: Megestrol Acetate Liq 400 MG/10 ML UDC PO SCH (09:55)
[2018-09-08] MEDS: Senna/Docusate Sodium 8.6/50 MG Tablet PO SCH ×2 (09:55→20:35)
[2018-09-08] MEDS: Multivitamin/Minerals Therapeutic Tablet PO SCH (09:55)
[2018-09-08] MEDS: Sodium Chloride 0.9% 2 ML Flush BID IV.FLUSH SCH ×2 (09:56→20:34)
--- NOTE | 2018-09-08 14:10 | P.PNIM ---
Subjective Interval history: Patient seen and examined. Patient reports 2 bowel movements yesterday. He says he feels all right. He continues to endorse good appetite. He denies any nausea or vomiting. Discussed with nursing staff, no adverse events noted overnight. Physical Exam Vital signs: Last Vital Signs Temp 97.6 F 09/08/18 05:45 Pulse 85 09/08/18 05:45 Resp 16 09/08/18 05:45 BP 105/61 09/08/18 05:45 Pulse Ox 98 09/08/18 05:45 Intake & Output 09/06/18 09/07/18 09/08/18 09/09/18 06:59 06:59 06:59 06:59 Intake Total 1320 / 1320 1560 / 1560 1320 / 1320 960 / 960 Output Total 800 / 800 550 / 550 Balance 520 / 520 1010 / 1010 1320 / 1320 960 / 960 Narrative: GENERAL: Thin emaciated male. Awake and alert. Appears comfortable lying in bed. INAD. SKIN: Warm and dry. No generalized rash. HEENT: Atraumatic. Normocephalic. Pupils equal and round. No scleral icterus. No injection or drainage. No nasal bleeding or discharge. Mucous membranes pink and moist. NECK: Trachea midline. CARDIOVASCULAR: Tachycardic. No murmur auscultated. RESPIRATORY: No accessory muscle use. Clear to auscultation. Breath sounds equal bilaterally. GASTROINTESTINAL: Abdomen soft, nondistended, nontender. +BS noted. MUSCULOSKELETAL: Extremities without clubbing, cyanosis, or edema. No obvious deformities. NEUROLOGICAL: Awake and alert. Oriented x 3. No obvious cranial nerve deficits. Motor grossly within normal limits. Able to move all extremities spontaneously. Normal speech. PSYCHIATRIC: Flat affect. Judgment and insight poor. Results Labs CBC & Chem 7: 08/30/18 17:08 09/04/18 07:24 Assessment and Plan Plan 58-year-old male with past medical history significant for hypertension who presents to the emergency under ex-parte due to severe depression and failure to thrive. [facility] consulted to assist with medical management. Abdominal pain, possibly somatic but concerning given patient's loss of appetite and extreme weight loss, improving s/p lap cholecystectomy 7 weeks. No N/V, diarrhea, fever/chills AST/ALT stable Abd/pelv CT with small pericardial effusion. Prominent prostate with high density material in the expected region of the prostatic urethra raising the possibility of blood clot. Clinical correlation is recommended. Mild diffuse urinary bladder wall thickening. Right lower pole renal cyst. 6 mm low-density lesion within the right lobe of the liver which is too small for accurate density measurement. MRI of the abdomen with contrast using liver protocol would be helpful for further characterization of this finding if clinically indicated. Mild degenerative changes and scoliosis of the thoracolumbar spine. - MRI ordered, patient has refused to have this done. Discussed with him to have done on an outpatient basis. - Patient says that his diffuse abdominal pain is improving. He reports much improved appetite. Calorie count completed, adequate nutritional intake. - tumor markers unremarkable - PSA WNL - urine cytology negative for malignant cells Hypokalemia, acute - resolved s/p replacement - monitor K level as indicated Severe protein calorie malnutrition Cachexia BMI<19 Weight loss Reported 100lb in the past 2 months - Possibly related to depression and failure to thrive - Lesion noted on abd/pelvis CT scan, order for follow-up MRI, patient has refused this. - Cost Reduction Engineer following, appreciate assistance. Changed supplements to Enlive and started on Theragran-M as recommended. Calorie count in progress as above - reports improved appetite on Megace, continue - 2kg wt gain since admission Constipation, resolved +Bm x 2 - Continue on Pericolace 1 po BID. Dulcolax supp prn. - Encourage patient to get up move around the unit. Hypertension, chronic Previously on lisinopril -Continue lisinopril 5 mg daily, BP stable. Pericardial effusion Patient has no cardiac complaints - Echocardiogram reveals EF of 60-65% and moderate pericardial effusion, no pre- tamponade physiology observed. VSS. - CXR obtained and unremarkable, images reviewed by me - 09/04 patient informs me that he was told previously that he had fluid around his heart. He was evaluated by housekeeping worker at [facility] who did not recommend any further workup or treatment Vitamin D deficiency Vitamin D level 15 - given 50,000units ergocalciferol q. 7 days x4 doses, followed by daily po repletion - Patient will need to have vitamin D level rechecked in 2-3 months as outpatient DVT prophylaxis-subq heparin Patient appears stable from hospitalist standpoint. [facility] will sign off. Please reconsult if needed. Progress Note: Quality VTE Deep Vein Thrombosis/Pulmonary Embolism Present on Admission: No
[2018-09-08] MEDS: Mirtazapine 15 MG Tablet PO SCH (20:35)
[2018-09-09] MEDS: Lisinopril 5 MG Tablet PO SCH (08:29)
[2018-09-09] MEDS: Senna/Docusate Sodium 8.6/50 MG Tablet PO SCH ×2 (08:30→21:31)
[2018-09-09] MEDS: Heparin - SQ 10,000 UNITS/ML Vial SQ SCH ×2 (08:30→21:29)
[2018-09-09] MEDS: Multivitamin/Minerals Therapeutic Tablet PO SCH (08:30)
[2018-09-09] MEDS: Megestrol Acetate Liq 400 MG/10 ML UDC PO SCH (08:30)
[2018-09-09] MEDS: Sodium Chloride 0.9% 2 ML Flush BID IV.FLUSH SCH ×2 (10:19→21:30)
--- NOTE | 2018-09-09 16:07 | P.PNPSY ---
Subjective Chief Complaint: depression Remarks: Pt seen and discussed with staff. He has been compliant and cooperative with care. staff electronic warfare officer report that appetite has improved and pt is eating 75% of meals. He has difficulty with ADLs and did not shower today. RN states that the most activity he did was move from bed to chair in room wtih strong staff encouragment and coaxing. He is helpless and hopeless wtih significant anhedonia. Mental Status Examination Appearance: Disheveled, Other (Appearing malnourished) Consciousness: Alert (.) Orientation: x4 Motor Activity: Other Speech: Unremarkable Language: Adequate (Remained in bed) Fund of Knowledge: Adequate Attention and Concentration: Adequate Memory: Unremarkable Mood: Sad Affect: Flat Thought Process & Associations: Intact, Logical, Goal directed Thought Content: Appropriate Hallucination Type: None Delusion Type: None Suicidal Ideation: Yes (Intermittent) Suicidal Plan: No Suicidal Intention: No Homicidal Ideation: No Homicidal Plan: No Homicidal Intention: No Insight: Fair Judgment: Impulsive Assessment and Plan - Assessment (1) Bipolar disorder with depression Code(s): F31.30 - Bipolar disorder, current episode depressed, mild or moderate severity, unspecified Status: Acute - Plan Plan: Continue current tx plan Justification for Continued Inpatient Stay: impairments in self care and safety
[2018-09-09] MEDS: Mirtazapine 15 MG Tablet PO SCH (21:30)
[2018-09-10] MEDS: Heparin - SQ 10,000 UNITS/ML Vial SQ SCH ×2 (09:03→20:12)
[2018-09-10] MEDS: Multivitamin/Minerals Therapeutic Tablet PO SCH (09:03)
[2018-09-10] MEDS: Senna/Docusate Sodium 8.6/50 MG Tablet PO SCH ×2 (09:03→20:11)
[2018-09-10] MEDS: Lisinopril 5 MG Tablet PO SCH (09:03)
[2018-09-10] MEDS: Megestrol Acetate Liq 400 MG/10 ML UDC PO SCH (09:03)
--- NOTE | 2018-09-10 10:17 | P.TTN ---
- Patient Problems Problems: 1. Discharge planning 2. Medication compliance 3. Knowledge deficit 4. Lack of coping skills - Progress Toward Goals Provider Present: Dr. Jana Delarosa (Patient presents with a learned helplessness, Dr. Delarosa is eager to discharge the patient to a skilled short-term rehab facility to assist with ambulation.) Provider Input: 09/03/2018 Biopolar, depression and Suicidal Ideation. Lost 100 olbs after gall bladder surgery. Has sores on himself from laying down so much. Nurse Input: 09/03/2018 Eating very minimal on the unit Psychiatric Counselors Present: Alex Kinney Jr., [facility] (Counselor Aidee will continue looking for short-term rehab placement, or the patient may return home to his parents where he was domiciled prior to this Hospitalization.), Other Psychiatric Therapist Input: 09/03/2018 Psychiatrist will order a engine turner consult due to possible eating disorder after loosing so much eright. Will work on goals of treatment also. Group Spec/RT/OT/MIMS Present: FELICITA Whitlock (Patient does not attend groups at this time.), Other Group Spec/RT/OT/MIMS Input: 09/03/2018 Has not participated - Documentation Teaching Recipient: Patient
--- NOTE | 2018-09-10 14:03 | P.PNPSY ---
Subjective Chief Complaint: depression Remarks: Patient seen for follow-up, chart reviewed. Discussion with nursing staff reported that patient compliant with medications, continues to slowly improve his p.o. intake continues to refuse to go to groups. Patient was found lying in hospital bed noted to have bedside commode which he states he is now attempting to use but also mentions was able to work with physical therapy and was able to walk with assistance to the bathroom. Patient states that he is feeling less depressed and continues to have intermittent suicide ideation last time being last night. He states that these intermittent episodes of suicidality last seconds but he is able to implement coping skills to decrease duration. He states having spoken to his mother reports son is supportive. He states over the weekend he was working physical therapy. Patient was encouraged to participate in groups and activities which she was reluctant to but eventually agreed. Review of Systems All other systems reviewed negative except as stated in HPI Mental Status Examination Appearance: Disheveled, Other (Appearing malnourished) Consciousness: Alert (.) Orientation: x4 Motor Activity: Other Speech: Unremarkable Language: Adequate (Remained in bed) Fund of Knowledge: Adequate Attention and Concentration: Adequate Memory: Unremarkable Mood: Sad Affect: Blunt Thought Process & Associations: Intact, Logical, Goal directed Thought Content: Appropriate Hallucination Type: None Delusion Type: None Suicidal Ideation: Yes (Intermittent) Suicidal Plan: No Suicidal Intention: No Homicidal Ideation: No Homicidal Plan: No Homicidal Intention: No Insight: Fair Judgment: Impulsive Assessment and Plan - Assessment (1) Bipolar disorder with depression Code(s): F31.30 - Bipolar disorder, current episode depressed, mild or moderate severity, unspecified Status: Acute - Plan Plan: Patient this time continues with poor motivation, but is starting to participate slightly more with much encouragement from staff. We will continue to titrate mirtazapine to 45 mg p.o. at bedtime for depression this patient continues to endorse suicidality which is intermittent but continues to be present. We will continue rest of medications. Continue to monitor with her behavior. Continue to encourage patient to participate more groups and activities and more participation and self-care and ADLs. Discharge planning in progress. Justification for Continued Inpatient Stay: At risk of further decompensation at lower level care.
[2018-09-10] MEDS: Sodium Chloride 0.9% 2 ML Flush BID IV.FLUSH SCH (20:12)
[2018-09-10] MEDS: Mirtazapine 15 MG Tablet PO SCH (20:12)
[2018-09-11] MEDS: Sodium Chloride 0.9% 2 ML Flush BID IV.FLUSH SCH ×3 (08:17→20:35)
[2018-09-11] MEDS: Megestrol Acetate Liq 400 MG/10 ML UDC PO SCH (08:29)
[2018-09-11] MEDS: Senna/Docusate Sodium 8.6/50 MG Tablet PO SCH ×2 (08:29→20:27)
[2018-09-11] MEDS: Multivitamin/Minerals Therapeutic Tablet PO SCH (08:29)
[2018-09-11] MEDS: Lisinopril 5 MG Tablet PO SCH (08:29)
[2018-09-11] MEDS: Heparin - SQ 10,000 UNITS/ML Vial SQ SCH ×2 (08:29→20:27)
--- NOTE | 2018-09-11 16:03 | P.PNPSY ---
Subjective Chief Complaint: depression Remarks: Patient continues to spend most of his time watching television in bed. Today he did walk a bit with the PT consult. Patient is little slightly and he real problems except for as demonstrated by his apathetic low energy efforts even in conversation. He voices no complaints and denies homicidal suicidal and hallucinatory experiences or ideas. Patient was seen with nursing who report difficulty ongoing with getting the patient out of bed. There is consideration of taking his remote show that he is unable to spend the day watching television. He claims that he is sleeping well and that his appetite is good. Clear if he has gained any weight however. Review of Systems The review of systems is basically unchanged from yesterday. The patient did as noted however allow himself to be talked out of bed long enough to do some exercises with PT Mental Status Examination Appearance: Appropriate, Other (Appearing malnourished) Consciousness: Alert (.) Orientation: x4 Motor Activity: Other Speech: Unremarkable Language: Adequate (Remained in bed) Fund of Knowledge: Adequate Attention and Concentration: Adequate Memory: Unremarkable Mood: Sad Affect: Blunt Thought Process & Associations: Intact, Logical, Goal directed Thought Content: Appropriate Hallucination Type: None Delusion Type: None Suicidal Ideation: Yes (Intermittent) Suicidal Plan: No Suicidal Intention: No Homicidal Ideation: No Homicidal Plan: No Homicidal Intention: No Insight: Fair Judgment: Impulsive Assessment and Plan - Plan Plan: Patient this time continues with poor motivation, but is starting to participate slightly more with much encouragement from staff. We will continue to titrate mirtazapine to 45 mg p.o. at bedtime for depression this patient continues to endorse suicidality which is intermittent but continues to be present. We will continue rest of medications. Continue to monitor with her behavior. Continue to encourage patient to participate more groups and activities and more participation and self-care and ADLs. Discharge planning in progress. September 11, 2018 Patient is encouraged to get out of bed, but spends most of his time watching television. His appetite is good. He does not endorse and suicidal ideation at this time Justification for Continued Inpatient Stay: Patient shows very poor motivation and is difficult to get out of bed. He has even requested using bedside commode. It may be necessary to take away his remote control and turn off the TV. - Attending Attestation Patient continues to require inpatient hospitalization
[2018-09-11] MEDS: Mirtazapine 15 MG Tablet PO SCH (20:27)
[2018-09-12] MEDS: Senna/Docusate Sodium 8.6/50 MG Tablet PO SCH ×2 (08:14→20:05)
[2018-09-12] MEDS: Lisinopril 5 MG Tablet PO SCH (08:14)
[2018-09-12] MEDS: Heparin - SQ 10,000 UNITS/ML Vial SQ SCH ×2 (08:15→20:05)
[2018-09-12] MEDS: Megestrol Acetate Liq 400 MG/10 ML UDC PO SCH (08:15)
[2018-09-12] MEDS: Sodium Chloride 0.9% 2 ML Flush BID IV.FLUSH SCH ×2 (09:09→20:05)
[2018-09-12] MEDS: Multivitamin/Minerals Therapeutic Tablet PO SCH (09:10)
--- NOTE | 2018-09-12 11:36 | P.PNPSY ---
Subjective Chief Complaint: depression Remarks: Patient seen for follow-up, chart reviewed. Discussion with nursing staff reported that patient with no behavioral disturbances, patient slept last night , mostly in bed. Patient was found lying in hospital bed stating that his mood has been "up and down" continues to stay mostly in bed but staff has been able to notice patient with physical therapy was able to walk several steps with walker now. Bedside commode has been removed along with a bedside urinal and encourage patient to ambulate to the restroom on his own. He states his mood continues to be depressed but states that his lessening, does not endorse any suicidal ideations today. Plan of having patient transition back home was reviewed as patient at this time was advised that facilities will require certain amount of money which family and patient do not have to go to a health rehab at this time. Review of Systems All other systems reviewed negative except as stated in HPI Mental Status Examination Appearance: Disheveled Consciousness: Alert (.) Orientation: x4 Motor Activity: Other Speech: Unremarkable Language: Adequate (Remained in bed) Fund of Knowledge: Adequate Attention and Concentration: Adequate Memory: Unremarkable Mood: Sad Affect: Blunt Thought Process & Associations: Intact, Logical, Goal directed Thought Content: Appropriate Hallucination Type: None Delusion Type: None Suicidal Ideation: Yes (Denies today) Suicidal Plan: No Suicidal Intention: No Homicidal Ideation: No Homicidal Plan: No Homicidal Intention: No Insight: Fair Judgment: Impulsive Assessment and Plan - Assessment (1) Bipolar disorder with depression Code(s): F31.30 - Bipolar disorder, current episode depressed, mild or moderate severity, unspecified Status: Acute - Plan Plan: Patient this time continues with poor motivation and anhedonia but noted to be lessening as patient now working with physical therapy able to ambulate more with walker and continues to improve his p.o. nutritional intake. We will have bedside commode and urinal removed this patient now encouraged to walk self to bathroom as well as position more in groups and activities with plan to have patient transition down to the [facility] behavioral unit with patient will be required to do more for himself. Continue current treatment. Continue to monitor mood and behavior. Discharge planning in progress. Justification for Continued Inpatient Stay: At risk of further decompensation at lower level care.
--- NOTE | 2018-09-12 18:33 | P.DIET ---
Nutritional Evaluation Type of nutrition evaluation: follow-up Nutrition screening: Weight Loss > 10 lbs, [facility] Screening comments: 09/02/18 MDC Calorie Counting [facility] Malnutrition Subjective Subjective Comments: Pt reports he ate less today than usual d/t he had "so much food on his meal tray"; "I'm stuffed". Pt says he continues to drink the Ensure Enlive. Discussed the need for a current wt w/RN Rocio. Brought forward from previous note 09/03/18: Food preferences taken. Encouraged pt to order from his menu daily. Brought forward from previous note 09/02/18: Pt reports a 100lb weight loss after cholecystectomy 2 months ago, he just stopped eating. He reports he body was just not working but he did not want to . Yesterday patient reports he will slowly start eating again. Objective - Diagnosis Bipolar disorder with depression - Objective % IBW: 67 (IBW: 78.2kg) Body Weight Used for Calculations: Actual (52.6kg) Energy Needs - Lower Range (kCal/kg): 35 Energy Needs - Upper Range (kCal/kg): 40 Lower Limit kCal/kg (kCals): 1,841 Upper Limit kCal/kg (kCals): 2,104 Lower Limit Protein Factor (Grams per Kg): 1.2 Upper Limit Protein Factor (Grams per Kg): 1.5 Lower Protein Needs (Protein): 63 Upper Protein Needs (Protein): 79 Fluid Factor (ml/kg): 35 Estimated Fluid Needs (ml): 1,841 Dietitian Reviewed in Medical Record: Current diet, Curent medications, Intake & Output, Labs, Medical history Diet Order: Regular with Ensure TID Oral Diet Intake Amount: Good 75-90% Objective Comments: PMH: Bipolar disorder Meds include: Latuda, Megace, Remeron, Theragran M Labs include: A1C 3.6 LBM 09/09 Feeding - Current PO Supplement Current Supplement: Ensure Enlive Current Frequency of Supplement: Three times a day Current kCals Provided by Supplement: 350 Current Protein Provided by Supplement: 20 Assessment Assessment: Pt continues at nutritional risk r/t recent reported wt loss 100-lb over the past 2-months and low BMI 16.7. He is severely underweight, w/67% of his ideal body weight. [facility] for Calorie Count 09/03/18 through 09/05/18 w/Adequate PO Intake 100% for assessed kcal and protein needs. Pt continues w/Adequate po intake 50% and greater for meals. Continue Ensure Enlive TID. Continue to Golf pt food preferences. Pt receiving Theragran M QD to provide 100% of CATTLE EXAMINER's. Noted Megace started 09/01/18. Wt noted. Recommendations: 1. MDC for Calorie Count 09/03/18 through 09/05/18 w/Adequate PO Intake 100% for assessed kcal and protein needs 2. Continue Ensure Enlive TID 3. Continue to Golf pt food preferences 4. Pt receiving Theragran M QD to provide 100% of CATTLE EXAMINER's 5. Noted Megace started 09/01/18 Dietitian to Monitor: Lab values, Supplement acceptance, Intake & Output, Diet tolerance, Weight change, PO Intake, Medical course
[2018-09-12] MEDS: Mirtazapine 15 MG Tablet PO SCH (20:05)
[2018-09-13] MEDS: Senna/Docusate Sodium 8.6/50 MG Tablet PO SCH ×2 (09:10→20:27)
[2018-09-13] MEDS: Lisinopril 5 MG Tablet PO SCH (09:10)
[2018-09-13] MEDS: Sodium Chloride 0.9% 2 ML Flush BID IV.FLUSH SCH ×2 (09:10→20:28)
[2018-09-13] MEDS: Heparin - SQ 10,000 UNITS/ML Vial SQ SCH ×2 (09:10→20:34)
[2018-09-13] MEDS: Megestrol Acetate Liq 400 MG/10 ML UDC PO SCH (09:10)
[2018-09-13] MEDS: Multivitamin/Minerals Therapeutic Tablet PO SCH (09:11)
--- NOTE | 2018-09-13 10:25 | P.PNPSY ---
Subjective Chief Complaint: depression Remarks: Patient seen for follow-up, chart reviewed. Discussion with nursing staff reported that patient mostly seclusive in bed, has been more physically respiratory and ADLs. Patient was found lying in hospital bed noted to be calm and cooperative. Patient states he feels "full" stating that he ate most of his breakfast and that his nutritional intake has improved. He continued to report feeling depressed feeling he feels "the same" and states that he continues to have suicide ideations "bounce in and out". Patient states that he does not feel much different from admission and that he is slowly participating more in self-care. He states having attended groups yesterday, tolerating medications and no adverse drug reactions Review of Systems All other systems reviewed negative except as stated in HPI Mental Status Examination Appearance: Disheveled Consciousness: Alert (.) Orientation: x4 Motor Activity: Other Speech: Unremarkable Language: Adequate (Remained in bed) Fund of Knowledge: Adequate Attention and Concentration: Adequate Memory: Unremarkable Mood: Sad Affect: Blunt Thought Process & Associations: Intact, Logical, Goal directed Thought Content: Appropriate Hallucination Type: None Delusion Type: None Suicidal Ideation: Yes ("Bounce in and out") Suicidal Plan: No Suicidal Intention: No Homicidal Ideation: No Homicidal Plan: No Homicidal Intention: No Insight: Fair Judgment: Impulsive Assessment and Plan - Assessment (1) Bipolar disorder with depression Code(s): F31.30 - Bipolar disorder, current episode depressed, mild or moderate severity, unspecified Status: Acute - Plan Plan: Patient continues to have slow improvement in motivation, continues to require much encouragement for participation in ADLs and self-care. We will transfer patient to 2600 unit were patient will need to do more for himself, he is able to use his walker to ambulate although slowly improved to this unit we will encourage patient to do more this participation as well as have easier access to groups and activities on the unit we will continue current treatment. Continue to monitor mood and behavior. Discharge planning in progress. Justification for Continued Inpatient Stay: At risk of further decompensation at lower level care.
[2018-09-13] MEDS: Mirtazapine 15 MG Tablet PO SCH (20:27)
[2018-09-14] MEDS: Senna/Docusate Sodium 8.6/50 MG Tablet PO SCH ×2 (08:17→20:27)
[2018-09-14] MEDS: Multivitamin/Minerals Therapeutic Tablet PO SCH (08:17)
[2018-09-14] MEDS: Lisinopril 5 MG Tablet PO SCH (08:17)
[2018-09-14] MEDS: Sodium Chloride 0.9% 2 ML Flush BID IV.FLUSH SCH ×2 (08:19→20:27)
[2018-09-14] MEDS: Megestrol Acetate Liq 400 MG/10 ML UDC PO SCH (08:19)
--- NOTE | 2018-09-14 12:10 | P.PNPSY ---
Subjective Chief Complaint: depression Remarks: Patient seen in his room with RN, chart reviewed, patient compliant medication. Patient alert and oriented did recognize me from my rounding on him last week. He is vague today about any suicidal ideation. He states his appetite is better he feels like he has gained some weight. Though he remains depressed. It appears she would return home with his parents upon discharge Review of Systems All other systems reviewed negative except as stated in HPI Mental Status Examination Appearance: Appropriate Consciousness: Alert (.) Orientation: x4 Motor Activity: Other (Gait somewhat slow and unsteady) Speech: Unremarkable Language: Adequate Fund of Knowledge: Adequate Attention and Concentration: Adequate Memory: Unremarkable Mood: Sad Affect: Other (Decreased range and intensity) Thought Process & Associations: Intact, Logical, Goal directed Thought Content: Appropriate Hallucination Type: None Delusion Type: None Suicidal Ideation: Yes ("Bounce in and out") Suicidal Plan: No Suicidal Intention: No Homicidal Ideation: No Homicidal Plan: No Homicidal Intention: No Insight: Fair Judgment: Impulsive Assessment and Plan - Assessment (1) Bipolar disorder with depression Code(s): F31.30 - Bipolar disorder, current episode depressed, mild or moderate severity, unspecified Status: Acute - Plan Plan: Patient continues to isolate somewhat spending much time in bed. Though he is alert and oriented in no acute distress. Still makes vague suicidal ideation. Appears his appetite is improving for now continue treatment Justification for Continued Inpatient Stay: At this time patient with decompensated placed on a lower level of care Discharge Planning: Probable return home with family
[2018-09-14] MEDS: Heparin - SQ 10,000 UNITS/ML Vial SQ SCH ×2 (14:34→20:26)
[2018-09-14] MEDS: Mirtazapine 15 MG Tablet PO SCH (20:27)
[2018-09-15] MEDS: Lisinopril 5 MG Tablet PO SCH (08:11)
[2018-09-15] MEDS: Multivitamin/Minerals Therapeutic Tablet PO SCH (08:11)
[2018-09-15] MEDS: Senna/Docusate Sodium 8.6/50 MG Tablet PO SCH ×2 (08:11→20:31)
[2018-09-15] MEDS: Megestrol Acetate Liq 400 MG/10 ML UDC PO SCH (08:11)
[2018-09-15] MEDS: Sodium Chloride 0.9% 2 ML Flush BID IV.FLUSH SCH ×2 (08:12→21:27)
[2018-09-15] MEDS: Heparin - SQ 10,000 UNITS/ML Vial SQ SCH ×2 (08:12→20:07)
--- NOTE | 2018-09-15 13:16 | P.PNPSY ---
Subjective Chief Complaint: depression Remarks: Reviewed electronic medical records and discussed case with staff. Follow-up was conducted in the patient's room. He reports that he has been suffering some constipation but took a stool softener. He states that his sleep is been so-so due to being in the hospital. He does report an improvement in his appetite. He states that on a scale of 1-10 he would rate his depression as a 7 or 8 today. But he does maintain that he has been getting out more on the unit that he has been getting out the past 2 months. He denies any side effects from the medication. Mental Status Examination Appearance: Appropriate Consciousness: Alert (.) Orientation: x4 Motor Activity: Other (Gait somewhat slow and unsteady) Speech: Unremarkable Language: Adequate Fund of Knowledge: Adequate Attention and Concentration: Adequate Memory: Unremarkable Mood: Sad Affect: Other (Decreased range and intensity) Thought Process & Associations: Intact, Logical, Goal directed Thought Content: Appropriate Hallucination Type: None Delusion Type: None Suicidal Ideation: Yes ("Bounce in and out") Suicidal Plan: No Suicidal Intention: No Homicidal Ideation: No Homicidal Plan: No Homicidal Intention: No Insight: Fair Judgment: Impulsive Assessment and Plan - Assessment (1) Bipolar disorder with depression Code(s): F31.30 - Bipolar disorder, current episode depressed, mild or moderate severity, unspecified Status: Acute - Plan Plan: Patient will be reevaluated by the attending psychiatrist. Continue with current treatment plan. Justification for Continued Inpatient Stay: Moving this patient to a less restrictive environment would likely result in decompensation.
[2018-09-15] MEDS: Mirtazapine 15 MG Tablet PO SCH (20:08)
[2018-09-16] MEDS: Senna/Docusate Sodium 8.6/50 MG Tablet PO SCH ×2 (08:55→20:36)
[2018-09-16] MEDS: Multivitamin/Minerals Therapeutic Tablet PO SCH (08:55)
[2018-09-16] MEDS: Megestrol Acetate Liq 400 MG/10 ML UDC PO SCH (08:55)
[2018-09-16] MEDS: Lisinopril 5 MG Tablet PO SCH (08:55)
[2018-09-16] MEDS: Sodium Chloride 0.9% 2 ML Flush BID IV.FLUSH SCH ×2 (09:00→20:34)
[2018-09-16] MEDS: Heparin - SQ 10,000 UNITS/ML Vial SQ SCH ×2 (09:48→20:38)
--- NOTE | 2018-09-16 14:00 | P.PNPSY ---
Subjective Chief Complaint: depression Remarks: Patient seen and examined with nurse in weekend coverage for Dr. Corona. Chart reviewed. Case discussed with nursing staff. On my examination today, the patient reports that he believes that his impaired mobility is the primary barrier to self care that was reportedly evident prior to admission. He reports some ongoing low mood and feelings of "why me, why me?" However, he denies any suicidal or homicidal ideation or plan. He denies side effects from medications besides some constipation. Last bowel movement was this morning, although quantity was reportedly insufficient. Per nurse, the patient refused lactulose when offered to him to ameliorate this problem. I have encouraged him to consider taking a dose of lactulose for constipation. No other physical complaints. Vital Signs Temp Pulse Resp BP Pulse Ox 09/16/18 06:19 98.2 F 83 18 152/94 H 100 09/15/18 17:04 98.6 F 127 H 16 121/61 97 Intake and Output 09/15/18 09/16/18 09/16/18 22:59 06:59 14:59 Intake Total 240 / 240 Balance 240 / 240 Intake: Oral 240 / 240 Oral Supplement 0 / 0 Labs reviewed. Review of Systems All other systems reviewed negative except as stated in HPI Mental Status Examination Appearance: Appropriate Consciousness: Alert Orientation: x4 Motor Activity: Other (Mild psychomotor slowing) Speech: Unremarkable Language: Adequate Fund of Knowledge: Adequate Attention and Concentration: Adequate Memory: Unremarkable Mood: Sad Affect: Blunt Thought Process & Associations: Intact, Logical, Goal directed Thought Content: Appropriate Hallucination Type: None Delusion Type: None Suicidal Ideation: No Suicidal Plan: No Suicidal Intention: No Homicidal Ideation: No Homicidal Plan: No Homicidal Intention: No Insight: Fair Judgment: Impulsive Assessment and Plan - Assessment (1) Bipolar disorder with depression Code(s): F31.30 - Bipolar disorder, current episode depressed, mild or moderate severity, unspecified Status: Acute - Plan Plan: Continue current psychotropic medications as ordered. Continue to monitor on the inpatient unit. Continue other medications and care as ordered. Justification for Continued Inpatient Stay: High risk for decompensation in less restrictive environment. Discharge Planning: Per Dr. Corona.
[2018-09-16] MEDS: Mirtazapine 15 MG Tablet PO SCH (20:36)
[2018-09-17] MEDS: Multivitamin/Minerals Therapeutic Tablet PO SCH (08:11)
[2018-09-17] MEDS: Lisinopril 5 MG Tablet PO SCH (08:11)
[2018-09-17] MEDS: Senna/Docusate Sodium 8.6/50 MG Tablet PO SCH ×2 (08:11→20:26)
[2018-09-17] MEDS: Megestrol Acetate Liq 400 MG/10 ML UDC PO SCH (08:12)
[2018-09-17] MEDS: Heparin - SQ 10,000 UNITS/ML Vial SQ SCH ×2 (08:12→20:26)
[2018-09-17] MEDS: Sodium Chloride 0.9% 2 ML Flush BID IV.FLUSH SCH ×2 (08:14→21:00)
--- NOTE | 2018-09-17 12:32 | P.PNPSY ---
Subjective Chief Complaint: depression Remarks: She is seen by me with nurse Amelia, chart reviewed, patient compliant medication. While patient does come out for meals and his ADLs he remains somewhat sedentary in bed. I have encouraged him to ambulate more participate more in groups and milieu and spent more time in the dayroom's may help his functional abilities by walking more. He does continue to denies suicidality or homicidality voices or visions. There is some I feel he is improving need to consider discharge in the next 1-2 days Review of Systems All other systems reviewed negative except as stated in HPI Mental Status Examination Appearance: Appropriate Consciousness: Alert Orientation: x4 Motor Activity: Other (Mild psychomotor slowing) Speech: Unremarkable Language: Adequate Fund of Knowledge: Adequate Attention and Concentration: Adequate Memory: Unremarkable Mood: Other (Euthymic to mildly dysphoric) Affect: Other (Slight decreased range and intensity) Thought Process & Associations: Intact, Logical, Goal directed Thought Content: Appropriate Hallucination Type: None Delusion Type: None Suicidal Ideation: No Suicidal Plan: No Suicidal Intention: No Homicidal Ideation: No Homicidal Plan: No Homicidal Intention: No Insight: Fair Judgment: Impulsive Assessment and Plan - Assessment (1) Bipolar disorder with depression Code(s): F31.30 - Bipolar disorder, current episode depressed, mild or moderate severity, unspecified Status: Acute - Plan Plan: Patient mood slowly improving but he still isolates to some degree. Still stating difficulty with ambulation though I have encouraged him to to speak further and milieu and in group activities Justification for Continued Inpatient Stay: At this time patient with decompensated placed on a lower level of care Discharge Planning: To be determined probably home Request Healthcare Surrogate/Guardian Advocate?: No
--- NOTE | 2018-09-17 16:19 | P.TTN ---
- Patient Problems Problems: 1. Discharge planning 2. Medication compliance 3. Knowledge deficit 4. Lack of coping skills - Progress Toward Goals Provider Present: Dr. Jeet Corona, Dr. Jana Delarosa (Patient presents with a learned helplessness, Dr. Delarosa is eager to discharge the patient to a skilled short-term rehab facility to assist with ambulation.) Provider Input: 09/17/2018; patient is to be encourage to participate with groups or to remain on the outside of his room during group times if he doesn't agree to participate. No med change or adjustment at this time. 09/12/18 They removed his commode to see if he would get out of bed and walk to the bathroom. Pending him walking to the bathroom the plan is to move him to 2600 unit. 11/2017 Biopolar, depression and Suicidal Ideation. Lost 100 olbs after gall bladder surgery. Has sores on himself from laying down so much. Nurse(s) Present: RATNA Cisneros Nurse Input: 09/17/2018; patient is eating and taking his medications, no behavior, patient is encouraged to participate with groups and to remain out of bed during group times. 09/12/18 Stays in bed all day, eats minimally. 2017 Eating very minimal on the unit Psychiatric Counselors Present: Alex Kinney Jr., [facility] (Counselor Aidee will continue looking for short-term rehab placement, or the patient may return home to his parents where he was domiciled prior to this Hospitalization.), Aidee Muñoz, [facility], Other Psychiatric Therapist Input: 09/17/2018; patient will return home with family with outpatient follow-up when stable. 09/12/18 The patient has learned this helplessness. New information was forthcoming about him being on house arrest. 09/03/2018 Psychiatrist will order a cement paver consult due to possible eating disorder after loosing so much eright. Will work on goals of treatment also. Group Spec/RT/OT/MIMS Present: FELICITA Whitlock (Patient does not attend groups at this time.), Other Group Spec/RT/OT/MIMS Input: 09/17/2018 per OT patient has limited participation , with no peer to peer interaction. 09/12/18 No participation in anything as he refuses to get out of bed. 09/03/2018 Has not participated - Documentation Teaching Recipient: Patient
[2018-09-17] MEDS: Mirtazapine 15 MG Tablet PO SCH (20:26)
[2018-09-18] MEDS: Heparin - SQ 10,000 UNITS/ML Vial SQ SCH ×2 (08:45→20:42)
[2018-09-18] MEDS: Megestrol Acetate Liq 400 MG/10 ML UDC PO SCH (08:45)
[2018-09-18] MEDS: Senna/Docusate Sodium 8.6/50 MG Tablet PO SCH ×2 (08:45→20:42)
[2018-09-18] MEDS: Lisinopril 5 MG Tablet PO SCH (08:45)
[2018-09-18] MEDS: Sodium Chloride 0.9% 2 ML Flush BID IV.FLUSH SCH ×2 (08:45→21:08)
[2018-09-18] MEDS: Multivitamin/Minerals Therapeutic Tablet PO SCH (08:45)
--- NOTE | 2018-09-18 11:05 | P.PNPSY ---
Subjective Chief Complaint: depression Remarks: Patient is seen today in his room with nurse Amelia, chart reviewed. Patient showed some effort yesterday being more active in the milieu. Today he is taken back to his bed. Today he states he will not be able to go home with his family. At this time I feel patient is reaching his maximum benefit of inpatient psychiatric hospitalization that should be referred to a short-term inpatient rehab facility to help with his ambulation and ADLs. We will have Counselor work towards that goal as quickly as possible Review of Systems All other systems reviewed negative except as stated in HPI Mental Status Examination Appearance: Appropriate Consciousness: Alert Orientation: x4 Motor Activity: Other (Mild psychomotor slowing) Speech: Unremarkable Language: Adequate Fund of Knowledge: Adequate Attention and Concentration: Adequate Memory: Unremarkable Mood: Other (Euthymic to mildly dysphoric) Affect: Other (Slight decreased range and intensity) Thought Process & Associations: Intact, Logical, Goal directed Thought Content: Appropriate Hallucination Type: None Delusion Type: None Suicidal Ideation: No Suicidal Plan: No Suicidal Intention: No Homicidal Ideation: No Homicidal Plan: No Homicidal Intention: No Insight: Fair Judgment: Impulsive Assessment and Plan - Assessment (1) Bipolar disorder with depression Code(s): F31.30 - Bipolar disorder, current episode depressed, mild or moderate severity, unspecified Status: Acute - Plan Plan: Patient's mood is improving, the patient is some manipulation with the system at this time, now stating unable to return home with family, need to work diligently to find an appropriate short-term rehab facility for this gentleman Justification for Continued Inpatient Stay: At this time patient would decompensate if not place an appropriate level of care Discharge Planning: We need to work with patient to find appropriate rehab facility Request Healthcare Surrogate/Guardian Advocate?: No
[2018-09-18] MEDS: Mirtazapine 15 MG Tablet PO SCH (20:41)
[2018-09-19] MEDS: Multivitamin/Minerals Therapeutic Tablet PO SCH (09:00)
[2018-09-19] MEDS: Megestrol Acetate Liq 400 MG/10 ML UDC PO SCH (09:00)
[2018-09-19] MEDS: Lisinopril 5 MG Tablet PO SCH (09:00)
[2018-09-19] MEDS: Sodium Chloride 0.9% 2 ML Flush BID IV.FLUSH SCH ×2 (09:00→21:17)
[2018-09-19] MEDS: Heparin - SQ 10,000 UNITS/ML Vial SQ SCH ×2 (09:00→21:09)
[2018-09-19] MEDS: Senna/Docusate Sodium 8.6/50 MG Tablet PO SCH ×2 (09:00→21:09)
--- NOTE | 2018-09-19 09:35 | P.TTN ---
- Patient Problems Problems: 1. Discharge planning 2. Medication compliance 3. Knowledge deficit 4. Lack of coping skills - Progress Toward Goals Provider Present: Dr. Jeet Corona, Dr. Jana Delarosa (Patient presents with a learned helplessness, Dr. Delarosa is eager to discharge the patient to a skilled short-term rehab facility to assist with ambulation.) Provider Input: 09/19/18: Pt has been returning to bed following mealtimes, where he tends to remain. Pt has stated that he may not be able to return to the home of his parents, though this has been his d/c plan. No medication changes made. Pt may benefit from more immediate d/c with options being short- term rehab, home or long-term facility. Counselor to pursue options and to discuss with pt. Pt is not meeting in-pt psychiatric criteria though he does remain weak, would benefit from rehab (he has refused this option) which is prompting d/c. 09/17/2018; patient is to be encourage to participate with groups or to remain on the outside of his room during group times if he doesn't agree to participate. No med change or adjustment at this time. 09/12/18 They removed his commode to see if he would get out of bed and walk to the bathroom. Pending him walking to the bathroom the plan is to move him to 2600 unit. 11/2017 Biopolar, depression and Suicidal Ideation. Lost 100 olbs after gall bladder surgery. Has sores on himself from laying down so much. Nurse(s) Present: RATNA Cisneros Nurse Input: 09/17/2018; patient is eating and taking his medications, no behavior, patient is encouraged to participate with groups and to remain out of bed during group times. 09/12/18 Stays in bed all day, eats minimally. 2017 Eating very minimal on the unit Psychiatric Counselors Present: Alex Kinney Jr., [facility] (Counselor Aidee will continue looking for short-term rehab placement, or the patient may return home to his parents where he was domiciled prior to this Hospitalization.), Aidee Muñoz, [facility], Other Psychiatric Therapist Input: 09/19/18: Counselor has been informed of pt's prefered d/c option of returning to the plof (home of his parents). Pt has stated that this may not be an option. Pt has refused placement in a facility. Counselor to discuss d/c with pt with plan to expedite d/c, as pt is not meeting psychiatric criteria (per team consensus). 09/17/2018; patient will return home with family with outpatient follow-up when stable. 09/12/18 The patient has learned this helplessness. New information was forthcoming about him being on house arrest. 09/03/2018 Psychiatrist will order a community development manager consult due to possible eating disorder after loosing so much eright. Will work on goals of treatment also. Group Spec/RT/OT/MIMS Present: FELICITA Whitlock (Patient does not attend groups at this time.), Other Group Spec/RT/OT/MIMS Input: 09/19/18: Pt does not attend groups. He isolated to room with exception of attending meals. 09/17/2018 per OT patient has limited participation, with no peer to peer interaction. 09/12/18 No participation in anything as he refuses to get out of bed. 09/03/2018 Has not participated - Discharge Plan 09/19/18: Pt has been returning to bed following mealtimes, where he tends to remain. Pt has stated that he may not be able to return to the home of his parents, though this has been his d/c plan. No medication changes made. Pt may benefit from more immediate d/c with options being short-term rehab, home or long-term facility. Counselor to pursue options and to discuss with pt. Pt is not meeting in-pt psychiatric criteria though he does remain weak, would benefit from rehab (he has refused this option) which is prompting d/c. - Documentation Teaching Recipient: Patient
--- NOTE | 2018-09-19 12:01 | P.PNPSY ---
Subjective Chief Complaint: depression Remarks: Patient seen in his room with nurse PAC, chart reviewed, patient discussed with nurse. It appears patient did come out of his room today for both breakfast and lunch now is back in bed he appears to be somewhat more animated today. Says he is talked with his mother and younger brother. The younger brother is considering allowing the patient to come and stay with him we will no further this afternoon. Otherwise he continue to urge patient to ambulate get up and keep moving. Review of Systems All other systems reviewed negative except as stated in HPI Mental Status Examination Appearance: Appropriate Consciousness: Alert Orientation: x4 Motor Activity: Other (Mild psychomotor slowing) Speech: Unremarkable Language: Adequate Fund of Knowledge: Adequate Attention and Concentration: Adequate Memory: Unremarkable Mood: Other (Euthymic to mildly dysphoric) Affect: Other (Slight decreased range and intensity) Thought Process & Associations: Intact, Logical, Goal directed Thought Content: Appropriate Hallucination Type: None Delusion Type: None Suicidal Ideation: No Suicidal Plan: No Suicidal Intention: No Homicidal Ideation: No Homicidal Plan: No Homicidal Intention: No Insight: Fair Judgment: Impulsive Assessment and Plan - Assessment (1) Bipolar disorder with depression Code(s): F31.30 - Bipolar disorder, current episode depressed, mild or moderate severity, unspecified Status: Acute - Plan Plan: Patient mood improving, there is still some neediness perhaps some learned helplessness, and perhaps some manipulation. Continue to work with medication and finding an appropriate placement perhaps with his brother Justification for Continued Inpatient Stay: At this time patient may decompensated placed in a lower level of care Discharge Planning: To be determined perhaps with family member Request Healthcare Surrogate/Guardian Advocate?: No
[2018-09-19 16:44] VITALS: TEMP 98.5
[2018-09-19] MEDS: Mirtazapine 15 MG Tablet PO SCH (21:09)
[2018-09-20 06:32] VITALS: BP 112/74; PULSE 91; RESP 18; O2SAT 100
[2018-09-20] MEDS: Multivitamin/Minerals Therapeutic Tablet PO SCH (08:01)
[2018-09-20] MEDS: Megestrol Acetate Liq 400 MG/10 ML UDC PO SCH (08:01)
[2018-09-20] MEDS: Lisinopril 5 MG Tablet PO SCH (08:01)
[2018-09-20] MEDS: Senna/Docusate Sodium 8.6/50 MG Tablet PO SCH (08:01)
[2018-09-20] MEDS: Sodium Chloride 0.9% 2 ML Flush BID IV.FLUSH SCH (08:02)
[2018-09-20] MEDS: Heparin - SQ 10,000 UNITS/ML Vial SQ SCH (08:02)
--- NOTE | 2018-09-20 10:15 | P.PNIM ---
Heparin discontinued. Patient does not need to be on Heparin following discharge.
--- NOTE | 2018-09-20 10:20 | P.DCO ---
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 My clinical findings support the need for the requested home health care services because: Limited mobility due to disease progression, Deconditioned with increased weakness, Medication compliance is questionable, Limited ability to care for self, Need for psychosocial assistance, High risk of falls I certify that my clinical findings support that this patient is homebound because: Unsteady gait/balance, Unsafe to leave home unassisted, Need for psychosocial assistance
--- NOTE | 2018-09-20 10:24 | P.DSPSY ---
Psychiatry Discharge Summary Inpatient Psychiatric care?: Yes Advance Directives: No Mental Health Advance Directive: No Health Care Proxy: No - Admission Admission Date: August 31, 2018 10:51 - Admission Diagnosis (1) Bipolar disorder with depression Code(s): F31.30 - Bipolar disorder, current episode depressed, mild or moderate severity, unspecified Brief History: Patient is a 58-year-old male with a history of bipolar disorder and no previous suicide attempts presenting to the hospital via exparte for depression and lack of self-care. Since undergoing cholecystectomy 6 weeks ago patient has had poor p.o. intake. Patient believes that he gets clogged up if he eats. He also admits to a history of weight loss during his depressive episodes. Patient recently lost 100 pounds per record. Mood has been depressed. Energy is low. Sleep is poor. Appetite is variable. Patient has passive suicidal ideation without any plan or intent. No psychosis noted. 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 The process was started by his daughter who allege that over the past 6 to 8 weeks the patient has been refusing to eat, drink anything but water, get out of bed, or follow-up with scheduled doctor's appointments. It is reported that the patient has lost approximately 100 pounds. The patient states that he is unable to eat because when he does eat my body gets all messed up so I do not want to eat. He attributes this began after he had his gallbladder bladder removed a month and a half ago. The patient is seen. Electronic medical record is reviewed. No previous contact with [facility] psychiatry." Past psych: no History of suicide attempts. No inpatient admissions. History of bipolar artemio lasting 6 months. Patient admits to a history of excess energy poor concentration excess goal directed activity and euphoric mood. The only psychotropic medication he has been on is Seroquel which she says gave him a bad reaction. Past medical: Cholecystectomy, hypertension Past Social: Patient is . He has 2 kids were grown up. Denies a history of alcohol or substance abuse; though, he has a DUI in 2008. 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 His depression suicidality did lift he denies voices or visions. There appears to be in some degree of manipulation related to this. We have been in contact with patient's family they are willing to have him return home with them. The son is he makes attempts to become more self motivated. At this time patient longer meets criteria for inpatient psychiatric hospitalization. Thus patient will be discharged today to his family with Rx times 1 month. Follow[place]up [place]. Also have home health care referral to assist him in gaining further independence. - Discharge Discharge Date: 09/20/18 - Discharge Diagnosis (1) Bipolar disorder with depression Diagnosis: Principal Code(s): F31.30 - Bipolar disorder, current episode depressed, mild or moderate severity, unspecified Status: Acute Discharge Disposition: Home (With parents) - Discharge Instructions Discharge Diet: Regular Diet (To be assessed by home health care) Activities You Can Perform: Regular- No Restrictions (To be assessed by home health care) - Discharge Time > 30 minutes Mental Status Examination Appearance: Appropriate Consciousness: Alert Orientation: x4 Motor Activity: Other (Mild psychomotor slowing) Speech: Unremarkable Language: Adequate Fund of Knowledge: Adequate Attention and Concentration: Adequate Memory: Unremarkable Mood: Other (Euthymic to mildly dysphoric) Affect: Other (Slight decreased range and intensity) Thought Process & Associations: Intact, Logical, Goal directed Thought Content: Appropriate Hallucination Type: None Delusion Type: None Suicidal Ideation: No Suicidal Plan: No Suicidal Intention: No Homicidal Ideation: No Homicidal Plan: No Homicidal Intention: No Insight: Fair Judgment: Impulsive Discharge/Advance Care Plan - Results Vital Signs: Last Vital Signs Temp 98.5 F 09/20/18 06:31 Pulse 91 H 09/20/18 06:31 Resp 18 09/20/18 06:31 BP 112/74 09/20/18 06:31 Pulse Ox 100 09/20/18 06:31 Lab Results: Laboratory Results Hemoglobin A1c 3.6 % (4.3-6.0) L 09/01/18 07:16 Triglycerides 114 mg/dL (42-150) 09/01/18 07:16 Cholesterol 225 mg/dL (120-200) H 09/01/18 07:16 LDL Cholesterol, Calc 164 mg/dL (0-99) H 09/01/18 07:16 HDL Cholesterol 38.1 mg/dL (40.0-60.0) L 09/01/18 07:16 TSH 2.960 uIU/mL (0.358-3.740) 08/30/18 17:08 Urine Culture Comments Culture not ind 08/30/18 21:40 Summary of Procedures: None done Imaging: ITS Impressions Abdomen/Pelvis CT 08/30/18 17:05 CONCLUSION: 1. Small pericardial effusion. 2. Prominent prostate with high density material in the expected region of the prostatic urethra raising the possibility of blood clot. Clinical correlation is recommended. 3. Mild diffuse urinary bladder wall thickening. 4. 3.7 cm right lower pole renal cyst. 5. 6 mm low-density lesion within the right lobe of the liver which is too small for accurate density measurement. MRI of the abdomen with contrast using liver protocol would be helpful for further characterization of this finding if clinically indicated. 6. Mild degenerative changes and scoliosis of the thoracolumbar spine. Chest X-Ray 09/02/18 00:00 CONCLUSION: No acute intrathoracic disease. Pending Results: None - Medications Number of antipsychotic medications at discharge: 1 - Discharge Care Plan Goals to Promote Your Health: * To prevent worsening of your condition and complications * To maintain your health at the optimal level Directions to Meet Your Goals: Take your medications as prescribed Follow your dietary instruction Follow activity as directed Keep your appointments as scheduled Take your immunizations and boosters as scheduled If your symptoms worsen call your PCP, if no PCP go to Urgent Care Center or Emergency Room For 24/04 questions related to your inpatient stay or results of tests pending at discharge, please contact Dr. Eldon Corona MD at Smoking is Dangerous to Your Health. Avoid second hand smoking
--- NOTE | 2018-09-20 13:00 | P.DIET ---
Nutritional Evaluation Type of nutrition evaluation: follow-up Nutrition screening: Weight Loss > 10 lbs, [facility] Screening comments: 09/02/18 [facility] Calorie Counting [facility] Malnutrition Subjective Subjective Comments: P intake today 100% for breakfast and 75% for lunch. Brought forward from previous note 09/03/18: Food preferences taken. Encouraged pt to order from his menu daily. Brought forward from previous note 09/02/18: Pt reports a 100lb weight loss after cholecystectomy 2 months ago, he just stopped eating. He reports he body was just not working but he did not want to . Yesterday patient reports he will slowly start eating again. Objective - Diagnosis Bipolar disorder with depression - Objective % IBW: 67 (IBW: 78.2kg) Body Weight Used for Calculations: Actual (52.6kg) Energy Needs - Lower Range (kCal/kg): 35 Energy Needs - Upper Range (kCal/kg): 40 Lower Limit kCal/kg (kCals): 1,841 Upper Limit kCal/kg (kCals): 2,104 Lower Limit Protein Factor (Grams per Kg): 1.2 Upper Limit Protein Factor (Grams per Kg): 1.5 Lower Protein Needs (Protein): 63 Upper Protein Needs (Protein): 79 Fluid Factor (ml/kg): 35 Estimated Fluid Needs (ml): 1,841 Dietitian Reviewed in Medical Record: Current diet, Curent medications, Intake & Output, Labs, Medical history Diet Order: Regular with Ensure TID Oral Diet Intake Amount: Good 75-90% Objective Comments: PMH: Bipolar disorder Meds include: Latuda, Megace, Remeron, Theragran M Labs include: A1C 3.6 Feeding - Current PO Supplement Current Supplement: Ensure Enlive Current Frequency of Supplement: Three times a day Current kCals Provided by Supplement: 350 Current Protein Provided by Supplement: 20 Assessment Assessment: Pt continues at nutritional risk r/t recent reported wt loss 100-lb over the past 2-months and low BMI 16.7. He is severely underweight, w/67% of his ideal body weight. Previous Calorie Count 09/03/18 through 09/05/18 w/Adequate PO Intake 100% for assessed kcal and protein needs. Pt continues w/Adequate po intake 50% and greater for meals. Continue Ensure Enlive TID. Pt receiving Theragran M QD to provide 100% of [employer] TECHNICIAN's. Noted Megace started 09/01/18. Wt changes noted. Recommendations: 1. Previous Calorie Count 09/03/18 through 09/05/18 w/Adequate PO Intake 100% for assessed kcal and protein needs 2. Continue Ensure Enlive TID 3. Continue to [place] pt food preferences 4. Pt receiving Theragran M QD to provide 100% of [employer] ELECT[employer] TECHNICIAN's 5. Noted Megace started 09/01/18 Dietitian to Monitor: Lab values, Supplement acceptance, Intake & Output, Diet tolerance, Weight change, PO Intake, Medical course
== END 2018-09-20 13:20 | disposition home or self-care (01) ==
LOC: NEPC 16:42 → NEDA 08-31 10:51 → H4EA 08-31 11:44 → H260 09-13 13:29
PROVIDERS: ADMIT Psychiatry & Neurology Psychiatry; ATTEND Psychiatry & Neurology Psychiatry
DX: I10 Essential (primary) hypertension; G47.00 Insomnia, unspecified; R64 Cachexia; K59.00 Constipation, unspecified; E55.9 Vitamin D deficiency, unspecified; Z74.09 Other reduced mobility; Z68.1 Body mass index [BMI] 19.9 or less, adult; I31.3 Pericardial effusion (noninflammatory); E43 Unspecified severe protein-calorie malnutrition; Z91.19 Patient's noncompliance with other medical treatment and regimen; E87.6 Hypokalemia; R62.7 Adult failure to thrive; F31.30 Bipolar disorder, current episode depressed, mild or moderate severity, unspecified; Z90.49 Acquired absence of other specified parts of digestive tract